=== PATIENT | female | born 1990 | race Caucasian/White ===

== ENCOUNTER 2018-03-02 13:54 | Emergency (ER) | payer BC, OTHER ==
[~2018-03-02] VITALS: Ht 167.6 cm; Wt 98.9 kg
[~2018-03-02 13:54] MED LIST: HYDR-757 PO; IBUP200C PO
--- OUTSIDE RECORDS SUMMARY | 2018-03-02 14:05 | XMS REPORT ---
Author Author EMERALDVLADIMIR Organization [facility] Address [address] [place] [address] Care Team Providers Care Accounts Collector Name Role Phone VLADIMIR CORBIN Unavailable PROBLEMS Type Condition ICD9-CM Code CZS55-JS Code Onset Dates Condition Status SNOMED Code Problem Non-seasonal allergic rhinitis due to pollen J30.1 Active 30017748 Problem Acquired hypothyroidism E03.9 Active 753851997 Problem Mixed hyperlipidemia E78.2 Active 953149308 Problem Obesity (BMI 30-39.9) E66.9 Active 584190998 Problem Mild single current episode of major depressive disorder F32.0 Active 77314625 ALLERGIES No Known Allergies ENCOUNTERS Encounter Location Date Diagnosis [place] [id number] [address] Nov, Non-seasonal allergic rhinitis due to pollen J30.1 [place] [address] [place] [id number] [place] [phone] May, Encounter to establish care with new doctor Z76.Vince ; Acquired hypothyroidism E03.9 ; Mild single current episode of major depressive disorder F32.0 and Obesity (BMI 30-39.9) E66.9 [place] [address] [place] [id number] [place] [phone] May, Encounter to establish care with new doctor Z76.89 ; Acquired hypothyroidism E03.9 ; Mild single current episode of major depressive disorder F32.0 ; Obesity (BMI 30-39.9) E66.9 and Encounter for immunization Z23 [place] [address] [place] [id number] [place] [address] May, [place] [address] [place] [id number] [place] [phone] 21 Aug, 2017 Acute bronchitis, unspecified organism J20.9 ; Sore throat J02.9 and Elevated blood pressure reading R03.0 [facility] [address] [address] Feb, Irritable bowel syndrome with diarrhea K58.0 and Anhedonia R45.84 [facility] [address] [address] Feb, Major depressive disorder, single episode, moderate F32.1 [facility] [address] [phone] 13 Oct, 2015 Acute vomiting R11.10 and Acute diarrhea R19.7 [facility] [address] [address] Jul, Muscle spasm of back M62.830 [facility] [address] [address] Dec, [facility] [address] [address] Dec, [facility] [address] [address] Oct, [facility] [address] [place] [id number] [place] [address] Oct, [facility] [address] [place] [id number] [place] [phone] Jun, [facility] [address] [place] [address] [id number] [place] [phone] Jun, [facility] [address] [address] Jun, [facility] [address] [address] Jun, [facility] [address] [place] [id number] [place] [phone] Nov, [facility] [address] [facility] [id number] [address] Nov, [facility] [address] [facility] [id number] [address] Nov, [facility] [address] [facility] [id number] [address] Nov, [facility] [address] [facility] [id number], [place] [address] Sep, [facility] [address] [facility] [id number], [place] [address] Sep, IMMUNIZATIONS No Known Immunizations SOCIAL HISTORY Never Assessed REASON FOR VISIT Sore throat, cough, congestion, SOB since Sunday, sent home from work today--- DBennettRN, nausea, will cough so hard she vomits, Max temp 101 on Sunday PLAN OF CARE Activity Details Follow Up 4 Weeks Reason:needs to est. care VITAL SIGNS Height 66 in 2017-04-23 Weight 215 lbs 2017-04-23 Temperature 98.8 degrees Fahrenheit 2017-04-23 Heart Rate 120 bpm 2017-04-23 Respiratory Rate 20 2017-04-23 BMI 34.70 kg/m2 2017-04-23 Blood pressure systolic 168 mmHg 2017-04-23 Blood pressure diastolic 96 mmHg 2017-04-23 MEDICATIONS Medication Instructions Dosage Frequency Start Date End Date Duration Status ProAir HFA 108 (90 Base) MCG/ACT Inhalation every 4 hrs 2 puffs as needed 4h Apr, 10 days Active PredniSONE 20 mg Orally Once a day 1 tablet 24h Apr, Apr, 05 days Active Azithromycin 250 MG Orally Once a day 2 tablets on the first day, then 1 tablet daily for 4 days 24h Apr, Apr, 5 day(s) Active Acidophilus Active RESULTS No Results PROCEDURES Procedure Date Ordered Result Body Site STREP A ASSAY W/OPTIC Apr 23, 2017 INSTRUCTIONS MEDICATIONS ADMINISTERED No Known Medications MEDICAL (GENERAL) HISTORY Type Description Date Medical History hypothyroidism; has not been on meds since age 15 Medical History hypertension Medical History hyperglycemia Surgical History cracked tail bone 2006 Surgical History wisdom teeth extraction 2014
[2018-03-02] MEDS ORDERED: FLUT16SP22 (14:21)
[2018-03-02 14:42] LABS: BASOPHILS % (AUTO) 1 % (0-10); EOSINOPHILS # (AUTO) 0.1 10^3/uL (0.0-0.3); EOSINOPHILS % (AUTO) 1 % (0-10); HEMATOCRIT 42 % (35-52); HEMOGLOBIN 14.9 G/DL (11.5-16.0); LYMPHOCYTES # (AUTO) 1.7 X 10^3 (1.0-4.0); LYMPHOCYTES % (AUTO) 21 % (12-44); MEAN CORPUSCULAR HEMOGLOBIN 31 PG (25-34); MEAN CORPUSCULAR HGB CONC 36 G/DL (32-36); MEAN CORPUSCULAR VOLUME 87 FL (80-99); MEAN PLATELET VOLUME 11.3 FL (7.4-10.4); MONOCYTES # (AUTO) 0.8 X 10^3 (0.0-1.0); MONOCYTES % (AUTO) 10 % (0-12); NEUTROPHILS # (AUTO) 5.5 X 10^3 (1.8-7.8); NEUTROPHILS % (AUTO) 67 % (42-75); PLATELET COUNT 216 10^3/uL (130-400); RED BLOOD COUNT 4.81 10^6/uL (4.35-5.85); RED CELL DISTRIBUTION WIDTH 12.6 % (10.0-14.5); WHITE BLOOD COUNT 8.1 10^3/uL (4.3-11.0)
--- NOTE | 2018-03-02 14:46 | ED Abdominal Pain ---
General Chief Complaint: Abdominal/GI Problems Stated Complaint: SHARP PAIN RIGHT SIDE ABDOMEN Nursing Triage Note: ARRIVED VIA AMB TO ROOM 06 WITH COMPLAINTS OF RIGHT LOWER ABD PAIN STARTING YESTERDAY. HAS ALSO HAD CRAMPS SINCE THE . Sepsis Screen: No Definite Risk Source of Information: Patient Exam Limitations: No Limitations History of Present Illness Date Seen by Provider: Mar 02, 2018 Time Seen by Provider: 14:44 Initial Comments to ER with sharp right lower quadrant abdominal pain since the of this month. She initially thought this with the onset of an early menstrual period. She should have started her menstrual cycle but has not yet started it. She did follow with [facility] and had a negative test done. She 's had some brownish colored vaginal discharge since the of this month. She is sexually active. She has nausea but no vomiting. No bowel changes. No fevers or chills. Timing/Duration: 1-2 Days Severity/Quality: Moderate Location: RLQ Radiation: No Radiation Activities at Onset: None Allergies and Home Medications Allergies Coded Allergies: No Known Drug Allergies (Unverified , 09/25/10) Home Medications Metronidazole 500 Mg Tablet, 500 MG PO BID Prescribed by: ERNESTO PIRES on 03/02/18 7286 Patient Home Medication List Home Medication List Reviewed: Yes Review of Systems Constitutional: see HPI EENTM: No Symptoms Reported Respiratory: No Symptoms Reported Cardiovascular: No Symptoms Reported Gastrointestinal: See HPI, Abdominal Pain, Nausea; Denies Vomiting Genitourinary: No Symptoms Reported Musculoskeletal: no symptoms reported Skin: no symptoms reported Psychiatric/Neurological: No Symptoms Reported Endocrine: No Symptoms Reported Past Uhgkmyi-Afqnmw-Bmpxpo Hx Patient Social History Alcohol Use: Occasionally Uses Recreational Drug Use: No Smoking Status: Never a Smoker Recent Foreign Travel: No Contact w/Someone Who Travel: No Recent Infectious Disease Expo: No Past Medical History Surgeries: Yes (TAILBONE SURGERY A LONG TIME AGO) Respiratory: No Cardiac: No Neurological: No Reproductive Disorders: No Genitourinary: No Gastrointestinal: No Musculoskeletal: No Endocrine: No HEENT: No Cancer: No Psychosocial: No Integumentary: No Blood Disorders: No Physical Exam Vital Signs Vital Signs - First Documented 03/02/18 14:06 Temp 98.0 Capillary Refill : Less Than 3 Seconds General Appearance: WD/WN, no apparent distress HEENT: PERRL/EOMI, normal ENT inspection Neck: non-tender, full range of motion Respiratory: no respiratory distress, no accessory muscle use Cardiovascular: regular rate, rhythm, no murmur Gastrointestinal: normal bowel sounds, soft, tenderness Pelvic: normal external exam, discharge (small amount of whitish discharge. No brownish discharge noted.); No lesions, No mass; tender w/ cervical motion, other Neurologic/Psychiatric: alert, normal mood/affect, oriented x 3 Skin: normal color, warm/dry Progress/Results/Core Measures Results/Orders Lab Results Laboratory Tests Test 03/02/18 14:30 Range/Units White Blood Count 8.1 4.3-11.0 10^3/uL Red Blood Count 4.81 4.35-5.85 10^6/uL Hemoglobin 14.9 11.5-16.0 G/DL Hematocrit 42 35-52 % Mean Corpuscular Volume 87 80-99 FL Mean Corpuscular Hemoglobin 31 25-34 PG Mean Corpuscular Hemoglobin Concent 36 32-36 G/DL Red Cell Distribution Width 12.6 10.0-14.5 % Platelet Count 216 130-400 10^3/uL Mean Platelet Volume 11.3 H 7.4-10.4 FL Neutrophils (%) (Auto) 67 42-75 % Lymphocytes (%) (Auto) 21 12-44 % Monocytes (%) (Auto) 10 0-12 % Eosinophils (%) (Auto) 1 0-10 % Basophils (%) (Auto) 1 0-10 % Neutrophils # (Auto) 5.5 1.8-7.8 X 10^3 Lymphocytes # (Auto) 1.7 1.0-4.0 X 10^3 Monocytes # (Auto) 0.8 0.0-1.0 X 10^3 Eosinophils # (Auto) 0.1 0.0-0.3 10^3/uL Basophils # (Auto) 0.0 0.0-0.1 10^3/uL Sodium Level 139 135-145 MMOL/L Potassium Level 3.6 3.6-5.0 MMOL/L Chloride Level 108 H 98-107 MMOL/L Carbon Dioxide Level 20 L 21-32 MMOL/L Anion Gap 11 5-14 MMOL/L Blood Urea Nitrogen 10 7-18 MG/DL Creatinine 0.71 0.60-1.30 MG/DL Estimat Glomerular Filtration Rate > 60 BUN/Creatinine Ratio 14 Glucose Level 95 70-105 MG/DL Calcium Level 9.4 8.5-10.1 MG/DL Total Bilirubin 0.4 0.1-1.0 MG/DL Aspartate Amino Transf (AST/SGOT) 13 5-34 U/L Alanine Aminotransferase (ALT/SGPT) 13 0-55 U/L Alkaline Phosphatase 87 40-136 U/L Total Protein 7.3 6.4-8.2 GM/DL Albumin 4.4 3.2-4.5 GM/DL Serum Test, Qualitative NEGATIVE NEGATIVE Micro Results Microbiology 03/02/18 Genital Culture, Resulted Pending 03/02/18 BRAYAN Preparation - Final, Resulted 03/02/18 Wet Prep - Final, Resulted My Orders Orders - ERNESTO PIRES APRN Cbc With Automated Diff (03/02/18 14:19) Comprehensive Metabolic Panel (03/02/18 14:19) Hcg,Qualitative Serum (03/02/18 14:19) Iv Heplock-Insert (Order) (03/02/18 14:19) Wet Prep (03/02/18 14:19) Neisseria Gonorrhea Swab (03/02/18 14:19) Genital Culture (03/02/18 14:19) Brayan Prep (03/02/18 14:19) Chlamydia Trachomatis Swab (03/02/18 14:19) Us Non Ob Pelvis Comp/Transvag (03/02/18 14:19) Ct Abd/Pelv W (Appendicitis) (03/02/18 15:11) Iohexol Injection (Omnipaque 350 Mg/Ml 1 (03/02/18 15:15) Ns (Ivpb) (Sodium Chloride 0.9% Ivpb Bag (03/02/18 15:15) Ceftriaxone Injection (Rocephin Injectio (03/02/18 16:00) Azithromycin Tablet (Zithromax Tablet) (03/02/18 16:00) Medications Given in ED Current Medications Medications Dose Ordered Sig/Sarah Route Start Time Stop Time Status Last Admin Dose Admin Iohexol 100 ml ONCE ONCE IV 03/02/18 15:15 03/02/18 15:16 UNV 03/02/18 15:24 100 ML Sodium Chloride 100 ml ONCE ONCE IV 03/02/18 15:15 03/02/18 15:16 UNV 03/02/18 15:24 100 ML Vital Signs/I&O 03/02/18 14:06 Temp 98.0 B/P (MAP) Diagnostic Imaging Diagonstic Imaging: CT Comments NAME: [facility] REC#: [id number] PT STATUS: REG ER : 1990 PHYSICIAN: ERNESTO PIRES APRN ADMIT DATE: 03/02/18/ER Draft Date of Exam:03/02/18 CT ABD/PELV W (APPENDICITIS) PROCEDURE: CT abdomen and pelvis with contrast, rule out appendicitis. TECHNIQUE: Multiple contiguous axial images were obtained through the abdomen and pelvis after the administration of intravenous contrast. INDICATION: Right lower quadrant abdominal pain. COMPARISON: None. FINDINGS: The lung bases are clear. The liver, gallbladder, spleen, pancreas, adrenal glands, kidneys and vascular structures are grossly unremarkable. The appendix is normal. Distal ureters and urinary bladder are normal. The uterus is intact. There is no free air or free fluid. There is a single prominent gas-filled loop of small bowel, centrally, within the abdomen which could represent an early ileus. There is no overt obstruction. There is no significant constipation. There is no lymphadenopathy or inflammatory process. Osseous structures are normal. IMPRESSION: 1. Prominent nonspecific gas-filled loop of small bowel in the central abdomen, possibly an early ileus. There is no obstruction or inflammatory process. 2. Normal appendix. Dictated on workstation # [id number] Dict: 03/02/18 1543 Trans: 03/02/18 1548 [facility] [id number] Interpreted by: INESSA JOSHI Electronically signed by: Departure Impression Primary Impression: Bacterial vaginosis Additional Impressions: RLQ abdominal pain Cervicitis Disposition: HOME, SELF-CARE Condition: Stable Departure-Patient Inst. Decision time for Depature: 15:53 Referrals: [facility] (PCP/Family) Primary Care Physician Patient Instructions: Bacterial Vaginosis Add. Discharge Instructions: 1. Return to ER for any concerns 2. Follow-up with your doctor next week 3. Medication as directed All discharge instructions reviewed with patient and/or family. Voiced understanding. Scripts Metronidazole (Flagyl) 500 Mg Tablet 500 MG PO BID, #14 TAB Prov: ERNESTO PIRES APRN 03/02/18 ERNESTO PIRES APRN Mar 02, 2018 14:46
[2018-03-02 15:00] LABS: ALANINE AMINOTRANSFERASE 13 U/L (0-55); ALBUMIN 4.4 GM/DL (3.2-4.5); ALKALINE PHOSPHATASE 87 U/L (40-136); BILIRUBIN,TOTAL 0.4 MG/DL (0.1-1.0); BUN/CREATININE RATIO 14; CALCIUM 9.4 MG/DL (8.5-10.1); CARBON DIOXIDE 20 MMOL/L (21-32); CHLORIDE 108 MMOL/L (98-107); CREATININE SERUM 0.71 MG/DL (0.60-1.30); GFR ESTIMATED > 60; GLUCOSE 95 MG/DL (70-105); POTASSIUM 3.6 MMOL/L (3.6-5.0); SODIUM 139 MMOL/L (135-145); TOTAL PROTEIN 7.3 GM/DL (6.4-8.2)
[2018-03-02] MEDS ORDERED: NS 100 ML (IVPB) BAG IV ONE (15:15)
[2018-03-02] MEDS ORDERED: IOHEXOL 350 MG/ML 100 ML (OMNIPAQUE 350) VIAL IV ONE (15:15)
--- NOTE | 2018-03-02 15:49 | Diagnostic Imaging Report ---
PROCEDURE: CT abdomen and pelvis with contrast, rule out appendicitis. TECHNIQUE: Multiple contiguous axial images were obtained through the abdomen and pelvis after the administration of intravenous contrast. INDICATION: Right lower quadrant abdominal pain. COMPARISON: None. FINDINGS: The lung bases are clear. The liver, gallbladder, spleen, pancreas, adrenal glands, kidneys and vascular structures are grossly unremarkable. The appendix is normal. Distal ureters and urinary bladder are normal. The uterus is intact. There is no free air or free fluid. There is a single prominent gas-filled loop of small bowel, centrally, within the abdomen which could represent an early ileus. There is no overt obstruction. There is no significant constipation. There is no lymphadenopathy or inflammatory process. Osseous structures are normal. IMPRESSION: 1. Prominent nonspecific gas-filled loop of small bowel in the central abdomen, possibly an early ileus. There is no obstruction or inflammatory process. 2. Normal appendix. Dictated by: Dictated on workstation # [id number]
--- NOTE | 2018-03-02 15:52 | Diagnostic Imaging Report ---
INDICATION: Lower pelvic pain. COMPARISON: None. EXAMINATION: Pelvic ultrasound. FINDINGS: The uterus measures 7 x 5 x 4 cm and has a normal appearance. The endometrium is normal at 6 mm. The right ovary measures 2.5 x 4.0 x 2.5 cm. The left ovary is not identified. There is no mass or free fluid. IMPRESSION: Left ovary is not identified by ultrasound; otherwise, negative pelvic sonogram. Dictated by: Dictated on workstation # [id number]
[2018-03-02] MEDS ORDERED: METR500T PO (15:54)
[2018-03-02] MEDS ORDERED: cefTRIAXone INJECTION 1,000 MG in NS (IVPB) 50 ML IV ONE (16:00)
[2018-03-02] MEDS ORDERED: AZITHROMYCIN 250 MG TAB (ZITHROMAX) PO SCH (16:00)
[2018-03-02 16:42] VITALS: BP 133/78
== END 2018-03-02 16:42 | disposition home or self-care (01) ==
LOC: EDUNIT# 13:54 → ER 14:00
DX: N76.0 Acute vaginitis (principal); N72 Inflammatory disease of cervix uteri; Z32.02 Encounter for pregnancy test, result negative
CPT/HCPCS: 36415; 74177; 76830; 76856; 80053; 84703; 85025; 87070; 87210; 87491; 87591; 96365

== ENCOUNTER 2019-09-09 17:15 | Emergency (ER) | payer BC ==
[~2019-09-09] VITALS: Ht 167 cm; Wt 107.7 kg
[~2019-09-09 17:15] MED LIST changes: +FLUT16SP22; +METR500T PO
--- NOTE | 2019-09-09 18:23 | ED Cough/URI ---
General Chief Complaint: Cough/Cold/Flu Symptoms Stated Complaint: COUGH,CONGESTION Nursing Triage Note: ARRIVED VIA AMB TO TRIAGE WITH COUGH AND CONGESTION X1 WEEK. STATES SHE WENT TO [facility] AND THEY DID NOT GIVE HER ANY MEDS A COUPLE OF DAYS AGO AND SHE IS NOT BETTER. Sepsis Screen: No Definite Risk History of Present Illness Date Seen by Provider: Sep 09, 2019 Time Seen by Provider: 17:45 Initial Comments 29-year-old female reports cough for the last week. She has been taking Mucinex with no improvement in her symptoms. She denies getting a flu vaccine pressure. No fevers. Timing/Duration: intermittent Severity/Quality: dry cough Prior Episodes/Possible Cause: no prior episodes Associated Symptoms: cough, nasal congestion Allergies and Home Medications Allergies Coded Allergies: No Known Drug Allergies (Unverified , 09/25/10) Home Medications Albuterol Sulfate 6.7 Gm Hfa.aer.ad, 2 PUFF INH Q6H Prescribed by: TIANNA PIPER on 09/09/191835 Prednisone 20 Mg Tab, 40 MG PO DAILY Prescribed by: TIANNA PIPER on 09/09/191835 Patient Home Medication List Home Medication List Reviewed: Yes Review of Systems Review of Systems Constitutional: see HPI, malaise Respiratory: see HPI, cough; No short of breath All Other Systems Reviewed Negative Unless Noted: Yes Past Vgoksud-Kgpmei-Adurrm Hx Past Med/Social Hx: Reviewed Nursing Past Med/Soc Hx Patient Social History Recent Foreign Travel: No Contact w/Someone Who Travel: No Recent Infectious Disease Expo: No Past Medical History Surgeries: Yes (TAILBONE SURGERY A LONG TIME AGO) Respiratory: No Cardiac: No Neurological: No : No Last Menstrual Period: Sep 09, 2019 Reproductive Disorders: No Genitourinary: No Gastrointestinal: No Musculoskeletal: No Endocrine: No HEENT: No Cancer: No Psychosocial: No Integumentary: No Blood Disorders: No Physical Exam Vital Signs - First Documented 09/09/19 17:26 Temp 36.9 Pulse 118 Resp 18 B/P (MAP) 133/72 (92) Pulse Ox 98 O2 Delivery Room Air Capillary Refill : Less Than 3 Seconds Height: 5'6.00" Weight: 218lbs. oz. 98.507815sr; 38.00 BMI Method:Stated General Appearance: WD/WN, no apparent distress HEENT: PERRL/EOMI, normal ENT inspection, TMs normal, pharynx normal Neck: non-tender, full range of motion, supple, normal inspection Respiratory: chest non-tender, lungs clear, normal breath sounds Cardiovascular: normal peripheral pulses, regular rate, rhythm Gastrointestinal: normal bowel sounds, non tender, soft Neurologic/Psychiatric: no motor/sensory deficits, alert, normal mood/affect, oriented x 3 Skin: normal color, warm/dry Progress/Results/Core Measures Suspected Sepsis Recent Fever Within 48 Hours: No Infection Criteria Present: Suspected New Infection New/Unexplained Altered Menta: No Sepsis Screen: No Definite Risk SIRS Temperature: Pulse: 118 Respiratory Rate: 18 Blood Pressure 133 /72 Mean: 92 Results/Orders Micro Results Microbiology 09/09/19 Influenza Types A,B Antigen (MYA) - Final, Complete My Orders Orders - TIANNA PIPER Influenza A And B Antigens (09/09/19 17:45) Vital Signs/I&O 09/09/19 09/09/19 17:26 18:53 Temp 36.9 36.9 Pulse 118 118 Resp 18 18 B/P (MAP) 133/72 (92) 133/72 (92) Pulse Ox 98 98 O2 Delivery Room Air Capillary Refill : Less Than 3 Seconds Blood Pressure Mean: 92 Progress Note : Time: 17:45 Progress Note Patient seen and evaluated, will obtain influenza swab and reevaluate. Pulse is 80 at this time. Departure Impression Primary Impression: Upper respiratory infection Qualified Codes: J06.9 - Acute upper respiratory infection, unspecified Disposition: 01 HOME, SELF-CARE Condition: Improved Departure-Patient Inst. Decision time for Depature: 18:45 Referrals: [facility] [place] Primary Care Physician Patient Instructions: Cough, Adult (DC), Viral Upper Respiratory Infection, Adult (DC) Add. Discharge Instructions: Continue taking Mucinex one tablet every 12 hours with a full glass of water. Use the inhaler every 4-6 hours, 2 puffs waiting 5-10 minutes between puffs. Sinus irrigation with a Michela pot or Eddie med bottle, every 4 hours, while awake. Follow-up with your primary care provider if symptoms are not improving or worsen. Alternate between Tylenol 650 mg and Tylenol 600 mg every 4 hours for fever or discomfort. Increase rest. Return to the emergency department for new, urgent health care needs. All discharge instructions reviewed with patient and/or family. Voiced understanding. Scripts Albuterol Sulfate (Proventil Hfa) 6.7 Gm Hfa.aer.ad 2 PUFF INH Q6H for SHORTNESS OF BREATH for 10 Days, #1 EACH 0 Refills Prov: TIANNA PIPER 09/09/19 Prednisone (Prednisone) 20 Mg Tab 40 MG PO DAILY, #8 TAB 0 Refills Prov: TIANNA PIPER 09/09/19 Work/School Note: Work Release Form Date Seen in the Emergency Department: Sep 09, 2019 Return to Work: Sep 10, 2019 Restrictions: No Restrictions TIANNA PIPER Sep 09, 2019 18:23
[2019-09-09] MEDS ORDERED: RT-ALBUINH INH (18:36)
[2019-09-09] MEDS ORDERED: PRD20T PO (18:36)
[2019-09-09 18:53] VITALS: BP 133/72
== END 2019-09-09 18:53 | disposition home or self-care (01) ==
LOC: EDUNIT# 17:15 → ER 17:16
DX: J06.9 Acute upper respiratory infection, unspecified (principal); Z79.52 Long term (current) use of systemic steroids
CPT/HCPCS: 87804

== ENCOUNTER 2020-10-21 20:21 | Emergency (ER) | payer SELFPAY ==
[~2020-10-21] VITALS: Ht 170.1 cm; Wt 108.8 kg
[~2020-10-21 20:21] MED LIST changes: +PRD20T PO; +RT-ALBUINH INH
[2020-10-21] MEDS ORDERED: LACTATED RINGERS 1,000 ML IV ONE (20:45)
[2020-10-21] MEDS ORDERED: FLUT9.9S NS (20:49)
--- NOTE | 2020-10-21 20:51 | ED Abdominal Pain ---
General Chief Complaint: Abdominal/GI Problems Stated Complaint: LOWER BACK / ABDOMINAL PAIN Nursing Triage Note: PATIENT STATES THAT SHE HAS HAD LEFT SIDE PAIN FOR THE PAST TWO MONTHS AND WORSENING TODAY. CURRENTLY RATING 7/10. STATES THAT HER URINE IS DARK. SHE WENT TO [facility] TODAY FOR THIS COMPLAINT. SHE STATES THAT SHE IS FRUSTRATED THAT THEY WERE ABLE TO GIVE HER A DEFINITE DIAGNOSIS. SHE STATES THAT SHE WAS TOLD THAT IT COULD BE POLYCYSTIC OVARIAN SYNDROME. Sepsis Screen: No Definite Risk Source of Information: Patient History of Present Illness Date Seen by Provider: Oct 21, 2020 Time Seen by Provider: 20:39 Initial Comments PT ARRIVES VIA POV FROM HOME C/O LEFT FLANK PAIN FOR 2 MONTHS, WORSE TODAY. SEEN AT [facility] TODAY, NO TESTS DONE AND NO DX, NO RX NO RADIATION OF PAIN STATES HER URINE IS DARK AND OCCASIONALLY IT "STINGS" WHEN SHE URINATES HAD FEVER OF 101 A COUPLE OF WEEKS AGO\\ AT THAT TIME SHE DID HAVE NAUSEA AND VOMITED X 1 WHEN SHE HAD FEVER, NONE SINCE HAS HAD DIARRHEA OFF AND ON--LAST TIME WAS 2 DAYS AGO HAS NOT TAKEN ANYTHING FOR PAIN LMP--2 MONTHS AGO. STATES SHE HAS HAD OVARIAN CYSTS AND POSSIBLE PCOS. TAKES SPIRONOLACTONE FOR ELEVATED TESTOSTERONE LEVELS. NO COUGH NO CHEST PAIN NO SHORTNESS OF BREATH NO SORE THROAT OR LOSS OF TASTE OR SMELL HAS BEEN EXPOSED TO COVID AT WORK ( WORKS AT [employer]) --HAD A NEGATIVE TEST 1 MONTH AGO. [facility] Allergies and Home Medications Allergies Coded Allergies: No Known Drug Allergies (Unverified , 09/25/10) Home Medications Albuterol Sulfate 6.7 Gm Hfa.aer.ad, 2 PUFF INH Q6H Prescribed by: TIANNA PIPER on 09/09/19 183 Cyclobenzaprine HCl 10 Mg Tablet, 10 MG PO Q8H PRN for SPASMS Prescribed by: BRY HUTTON on 10/21/202226 Fluticasone Propionate 9.9 Ml [place].susp, 1 SPRAY NS DAILY, (Reported) 1 SPRAY EACH NARE DAILY Meloxicam 15 Mg Tablet, 15 MG PO DAILY Prescribed by: BRY HUTTON on 10/21/202226 Nitrofurantoin Monohyd/M-Cryst 100 Mg Capsule, 1 TAB PO BID Prescribed by: BRY HUTTON on 10/21/202226 Ondansetron 4 Mg Tab.rapdis, 4 MG PO Q4H Prescribed by: BRY HUTTON on 10/21/202226 Patient Home Medication List Home Medication List Reviewed: Yes Review of Systems Review of Systems Constitutional: see HPI (NO FEVER FOR 2 WEEKS) EENTM: No Symptoms Reported Respiratory: No Symptoms Reported Cardiovascular: No Symptoms Reported Gastrointestinal: See HPI Genitourinary: See HPI, Burning, Flank Pain Musculoskeletal: see HPI, back pain Skin: no symptoms reported Psychiatric/Neurological: No Symptoms Reported Endocrine: See HPI Hematologic/Lymphatic: No Symptoms Reported Past Irregvp-Yeagig-Szlhjb Hx Past Med/Social Hx: Reviewed and Corrections made Patient Social History Alcohol Use: Occasionally Uses Drug of Choice: DENIES Smoking Status: Never a Smoker 2nd Hand Smoke Exposure: Yes Recent Infectious Disease Expo: No Past Medical History Surgeries: Yes (TAILBONE SURGERY A LONG TIME AGO/?PILONIDAL CYST: OVARIAN CYST REMOVAL) Respiratory: No Cardiac: No Neurological: No 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 Reproductive Disorders: Menstrual Problems, Ovarian Cyst Genitourinary: No Gastrointestinal: Yes (GALLSTONES NOTED ON CT SCAN 10/21/20) Gall Bladder Disease Musculoskeletal: No Endocrine: No HEENT: No Cancer: No Psychosocial: No Integumentary: No Blood Disorders: No Physical Exam Vital Signs Vital Signs - First Documented 10/21/20 20:30 Temp 36.5 Pulse 104 Resp 22 B/P (MAP) 168/98 (121) Pulse Ox 98 O2 Delivery Room Air Capillary Refill : Less Than 3 Seconds Height/Weight/BMI Height: 5'6.00" Weight: 218lbs. oz. [id number]; 37.00 BMI Method:Stated General Appearance: WD/WN, no apparent distress, obese Neck: normal inspection Respiratory: normal breath sounds, no respiratory distress, no accessory muscle use Cardiovascular: regular rate, rhythm, no murmur Gastrointestinal: normal bowel sounds, soft, no organomegaly, no pulsatile mass; No distended, No guarding, No rebound; tenderness (MILD TENDERNESS TO LEFT FLANK AND TO SUPRAPUBIC AREA. 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, no motor/sensory deficits, alert, normal mood/affect, oriented x 3 Skin: normal color, warm/dry; No rash Progress/Results/Core Measures Results/Orders Lab Results Laboratory Tests Test 10/21/20 21:00 10/21/20 21:54 Range/Units Urine Color YELLOW Urine Clarity CLEAR Urine pH 6.5 5-9 Urine Specific [place] 1.020 1.016-1.022 Urine Protein NEGATIVE NEGATIVE Urine Glucose (UA) NEGATIVE NEGATIVE Urine Ketones NEGATIVE NEGATIVE Urine Nitrite NEGATIVE NEGATIVE Urine Bilirubin NEGATIVE NEGATIVE Urine Urobilinogen 1.0 < = 1.0 MG/DL Urine Leukocyte Esterase NEGATIVE NEGATIVE Urine RBC (Auto) NEGATIVE NEGATIVE Urine RBC NONE /HPF Urine WBC RARE /HPF Urine Squamous Epithelial Cells 5-10 /HPF Urine Crystals NONE /LPF Urine Bacteria MODERATE H /HPF Urine Casts NONE /LPF Urine Mucus SMALL H /LPF Urine Culture Indicated YES White Blood Count 10.1 4.3-11.0 10^3/uL Red Blood Count 5.25 H 3.80-5.11 10^6/uL Hemoglobin 15.8 11.5-16.0 g/dL Hematocrit 48 35-52 % Mean Corpuscular Volume 91 80-99 fL Mean Corpuscular Hemoglobin 30 25-34 pg Mean Corpuscular Hemoglobin Concent 33 32-36 g/dL Red Cell Distribution Width 12.1 10.0-14.5 % Platelet Count 234 130-400 10^3/uL Mean Platelet Volume 11.4 9.0-12.2 fL Immature Granulocyte % (Auto) 0 % Neutrophils (%) (Auto) 72 42-75 % Lymphocytes (%) (Auto) 20 12-44 % Monocytes (%) (Auto) 7 0-12 % Eosinophils (%) (Auto) 0 0-10 % Basophils (%) (Auto) 1 0-10 % Neutrophils # (Auto) 7.3 1.8-7.8 10^3/uL Lymphocytes # (Auto) 2.0 1.0-4.0 10^3/uL Monocytes # (Auto) 0.7 0.0-1.0 10^3/uL Eosinophils # (Auto) 0.0 0.0-0.3 10^3/uL Basophils # (Auto) 0.1 0.0-0.1 10^3/uL Immature Granulocyte # (Auto) 0.0 0.0-0.1 10^3/uL Sodium Level 140 135-145 MMOL/L Potassium Level 3.9 3.6-5.0 MMOL/L Chloride Level 105 98-107 MMOL/L Carbon Dioxide Level 19 L 21-32 MMOL/L Anion Gap 16 H 5-14 MMOL/L Blood Urea Nitrogen 12 7-18 MG/DL Creatinine 0.81 0.60-1.30 MG/DL Estimat Glomerular Filtration Rate > 60 BUN/Creatinine Ratio 15 Glucose Level 83 70-105 MG/DL Calcium Level 10.0 8.5-10.1 MG/DL Corrected Calcium 8.5-10.1 MG/DL Total Bilirubin 0.2 0.1-1.0 MG/DL Aspartate Amino Transf (AST/SGOT) 21 5-34 U/L Alanine Aminotransferase (ALT/SGPT) 36 0-55 U/L Alkaline Phosphatase 102 40-136 U/L Total Protein 8.7 H 6.4-8.2 GM/DL Albumin 5.0 H 3.2-4.5 GM/DL Amylase Level 65 25-125 U/L Lipase 29 8-78 U/L My Orders Orders - BRY HUTTON DO Ed Iv/Invasive Line Start (10/21/20 20:45) Urine Bedside (10/21/20 20:45) Monitor-Rhythm Ecg Trace Only (10/21/20 20:45) Ct Abd/Pelvis Wo(Kidney Stone) (10/21/20 20:45) Acute Abd Series (10/21/20 20:45) Amylase (10/21/20 20:45) Cbc With Automated Diff (10/21/20 20:45) Comprehensive Metabolic Panel (10/21/20 20:45) Lipase (10/21/20 20:45) Ua Culture If Indicated (10/21/20 20:45) Ed Iv/Invasive Line Start (10/21/20 20:45) Lactated Ringers (Lr 1000 Ml Iv Solution (10/21/20 20:45) Urine Culture (10/21/20 21:00) Ketorolac Injection (Toradol Injection) (10/21/20 22:30) Ceftriaxone For Iv Use (Rocephin For I (10/21/20 22:30) Medications Given in ED Current Medications Medications Dose Ordered Sig/Sarah Route Start Time Stop Time Status Last Admin Dose Admin Ceftriaxone Sodium 1000 mg/ Sterile Water 10 ml @ 200 mls/hr ONCE ONCE IV 10/21/20 22:30 10/21/20 22:32 DC 10/21/20 22:27 200 MLS/HR Ketorolac Tromethamine 30 mg ONCE ONCE IVP 10/21/20 22:30 10/21/20 22:31 DC 10/21/20 22:27 30 MG Lactated Ringer's 1,000 ml @ 0 mls/hr Q0M ONCE IV 10/21/20 20:45 10/21/20 20:47 DC 10/21/20 21:08 1,000 MLS/HR Vital Signs/I&O 10/21/20 20:30 Temp 36.5 Pulse 104 Resp 22 B/P (MAP) 168/98 (121) Pulse Ox 98 O2 Delivery Room Air 10/22/20 00:00 Intake Total 1010 ml Balance 1010 ml Blood Pressure Mean: 121 Progress Progress Note : Progress Note GIVEN IV FLUIDS, TORADOL AND ROCEPHIN SYMPTOMS IMPROVED AT DISMISSAL UNEVENTFUL ER STAY Diagnostic Imaging Comments ABDOMEN XRAYS--PER RADIOLOGIST REPORT AT 2206 ABDOMEN AND PELVIS: Unremarkable x-ray of the abdomen with nonobstructed bowel gas pattern. There is no evidence of abdominal free air. There are multiple shadows of stones overlying the right upper quadrant which correlates to cholelithiasis. This is better seen on comparison CT scan. There are no focal calcifications overlying the expected regions/ pathways of both kidneys, ureters, and bladder regions. IMPRESSION: 1: There is no radiographic evidence of acute cardiopulmonary process. 2: Cholelithiasis which is better seen on comparison CT scan. Otherwise, unremarkable x-ray of the abdomen. CT ABDOMEN/PELVIS--PER RADIOLOGIST REPORT 2220 Impression: 1: There is no CT evidence of acute abdominal pelvic process. There are no renal stones seen or hydronephrosis. 2: Interval development of cholelithiasis with multiple stones within the decompressed gallbladder. There is no CT evidence of acute cholecystitis. 3: The remainder of this exam shows no significant abnormality. Reviewed: Reviewed by Me Departure Impression Primary Impression: Left flank pain Additional Impressions: Cholelithiasis Urinary tract infection Disposition: 01 HOME, SELF-CARE Condition: Improved Departure-Patient Inst. Referrals: [facility] (PCP/Family) Primary Care Physician SELVIN LIU MD Patient Instructions: Flank Pain (DC), Gallstones (DC), Urinary Tract Infection, Adult (DC) Add. Discharge Instructions: LOTS OF CLEAR LIQUIDS--WATER, BROTH, JELLO, GATORADE. NO COFFEE, POP OR TEA FOODS TOLERATED FOLLOW UP WITH DR. LIU FOR FURTHER EVALUATION OF GALLSTONES FOLLOW UP WITH [facility] [place] 1 W[place] TO RECHECK URINE All discharge instructions reviewed with patient and/or family. Voiced understanding. Scripts Ondansetron (Ondansetron Odt) 4 Mg Tab.rapdis 4 MG PO Q4H for Nausea/Vomiting, #10 TAB Prov: BRY HUTTON DO 10/21/20 Nitrofurantoin Monohyd/M-Cryst (Macrobid 100 mg Capsule) 100 Mg Capsule 1 TAB PO BID, #20 CAP Prov: BRY HUTTON DO 10/21/20 Meloxicam (Mobic) 15 Mg Tablet 15 MG PO DAILY, #10 TAB Prov: BRY HUTTON DO 10/21/20 Cyclobenzaprine HCl (Cyclobenzaprine HCl) 10 Mg Tablet 10 MG PO Q8H PRN for SPASMS, #15 TAB 0 Refills Prov: BRY HUTTON DO 10/21/20 Work/School Note: Work Release Form Date Seen in the Emergency Department: Oct 21, 2020 BRY HUTTON DO Oct 21, 2020 20:51
[2020-10-21 21:10] LABS: BILIRUBIN,URINE NEGATIVE (NEGATIVE); CLARITY,URINE CLEAR; COLOR,URINE YELLOW; GLUCOSE, URINE (UA) NEGATIVE (NEGATIVE); KETONES,URINE NEGATIVE (NEGATIVE); LEUKOCYTE ESTERASE ,URINE NEGATIVE (NEGATIVE); NITRITE,URINE NEGATIVE (NEGATIVE); PH,URINE 6.5 (5-9); PROTEIN,URINE NEGATIVE (NEGATIVE)
[2020-10-21 21:17] LABS: BACTERIA,URINE MODERATE /HPF; WBC,URINE RARE /HPF
--- NOTE | 2020-10-21 22:00 | Diagnostic Imaging Report ---
CLINICAL INDICATION: Patient with abdominal pain and flank pain. EXAMS: X-ray of the chest PA view and x-ray of the abdomen supine and upright views. COMPARISONS: CT scan of the abdomen and pelvis without contrast dated 10/21/2020. All CT scans use one or more of the following dose optimizing techniques: automated exposure control, MA and/or KvP adjustment based on patient size and exam type or iterative reconstruction. FINDINGS: LUNGS/ PLEURA: Lungs are clear. There is no pneumothorax. There is no pleural effusion. MEDIASTINUM: Unremarkable. PULMONARY VASCULATURE: Unremarkable. HEART: Unremarkable. BONES/ EXTRATHORACIC SOFT TISSUE: Unremarkable. ABDOMEN AND PELVIS: Unremarkable x-ray of the abdomen with nonobstructed bowel gas pattern. There is no evidence of abdominal free air. There are multiple shadows of stones overlying the right upper quadrant which correlates to cholelithiasis. This is better seen on comparison CT scan. There are no focal calcifications overlying the expected regions/ pathways of both kidneys, ureters, and bladder regions. IMPRESSION: 1: There is no radiographic evidence of acute cardiopulmonary process. 2: Cholelithiasis which is better seen on comparison CT scan. Otherwise, unremarkable x-ray of the abdomen. Dictated by: Dictated on workstation # [id number]
[2020-10-21 22:02] LABS: BASOPHILS # (AUTO) 0.1 10^3/uL (0.0-0.1); BASOPHILS % (AUTO) 1 % (0-10); EOSINOPHILS % (AUTO) 0 % (0-10); HEMATOCRIT 48 % (35-52); HEMOGLOBIN 15.8 g/dL (11.5-16.0); LYMPHOCYTES % (AUTO) 20 % (12-44); MEAN CORPUSCULAR HEMOGLOBIN 30 pg (25-34); MEAN CORPUSCULAR HGB CONC 33 g/dL (32-36); MEAN CORPUSCULAR VOLUME 91 fL (80-99); MEAN PLATELET VOLUME 11.4 fL (9.0-12.2); MONOCYTES # (AUTO) 0.7 10^3/uL (0.0-1.0); MONOCYTES % (AUTO) 7 % (0-12); NEUTROPHILS # (AUTO) 7.3 10^3/uL (1.8-7.8); NEUTROPHILS % (AUTO) 72 % (42-75); PLATELET COUNT 234 10^3/uL (130-400); WHITE BLOOD COUNT 10.1 10^3/uL (4.3-11.0)
--- NOTE | 2020-10-21 22:18 | Diagnostic Imaging Report ---
Clinical indication: Patient with right flank pain and abdominal pain. Exam: CT exam of the abdomen and pelvis is performed without IV or oral contrast using stone protocol. Coronal and sagittal reformatted images were created. Auto Exposure Controls were utilized during the CT exam to meet ALARA standards for radiation dose reduction. Comparison: CT scan of the abdomen and pelvis performed with contrast dated 03/02/2018. Findings: Visualized lung bases are clear. There are small spurs involving the lumbar spine. There is interval development of multiple stones within the predominantly decompressed gallbladder. There is no CT evidence of acute cholecystitis. The liver, spleen, pancreas and adrenal glands are unremarkable. Both kidneys are unremarkable with no stone or mass. There is no hydronephrosis. Bladder is partially fluid-filled and otherwise unremarkable. Uterus and adnexal structures are unremarkable. There is no significant intra-abdominal or intra-pelvic lymphadenopathy. There is no acute abdominal free air or free fluid. Stable nodular area seen anterior to the spleen which may represent a splenule. There is small amount of stool in the right colon and rectum region. There is no intestinal obstruction. Stable subcentimeter in short axis mesenteric lymph node seen. Appendix is unremarkable. The extra-abdominal and extra-pelvis soft tissue structures are unremarkable. Impression: 1: There is no CT evidence of acute abdominal pelvic process. There are no renal stones seen or hydronephrosis. 2: Interval development of cholelithiasis with multiple stones within the decompressed gallbladder. There is no CT evidence of acute cholecystitis. 3: The remainder of this exam shows no significant abnormality. Dictated by: Dictated on workstation # [id number]
[2020-10-21 22:21] LABS: ALANINE AMINOTRANSFERASE 36 U/L (0-55); ALKALINE PHOSPHATASE 102 U/L (40-136); AMYLASE 65 U/L (25-125); BILIRUBIN,TOTAL 0.2 MG/DL (0.1-1.0); BUN/CREATININE RATIO 15; CARBON DIOXIDE 19 MMOL/L (21-32); CHLORIDE 105 MMOL/L (98-107); CREATININE SERUM 0.81 MG/DL (0.60-1.30); GFR ESTIMATED > 60; GLUCOSE 83 MG/DL (70-105); LIPASE 29 U/L (8-78); POTASSIUM 3.9 MMOL/L (3.6-5.0); SODIUM 140 MMOL/L (135-145); TOTAL PROTEIN 8.7 GM/DL (6.4-8.2)
[2020-10-21] MEDS ORDERED: NITR-65 PO (22:27)
[2020-10-21] MEDS ORDERED: ONDA4TAB11 PO (22:27)
[2020-10-21] MEDS ORDERED: MELO15TA14 PO (22:27)
[2020-10-21] MEDS ORDERED: CYCL10TA9 PO (22:27)
[2020-10-21] MEDS ORDERED: cefTRIAXone FOR IV USE 1,000 MG in WATER (STERILE) FOR INJECTION 10 ML IV ONE (22:30)
[2020-10-21] MEDS ORDERED: KETOROLAC 30 MG/ML VIAL IVP ONE (22:30)
[2020-10-21 22:49] VITALS: BP 140/79
== END 2020-10-21 22:51 | disposition home or self-care (01) ==
LOC: EDUNIT# 20:21 → ER 20:24
DX: K80.20 Calculus of gallbladder without cholecystitis without obstruction (principal); N39.0 Urinary tract infection, site not specified; E66.9 Obesity, unspecified; Z68.37 Body mass index [BMI] 37.0-37.9, adult; Z77.22 Contact with and (suspected) exposure to environmental tobacco smoke (acute) (chronic)
CPT/HCPCS: 36415; 74022; 74176; 80053; 81000; 82150; 83690; 84703; 85025; 87088; 93041

== ENCOUNTER 2020-11-10 05:39 | Outpatient (RCR) | payer OTHER ==
[~2020-11-10] VITALS: Ht 167.7 cm; Wt 109.1 kg
[~2020-11-10 05:39] MED LIST changes: +CYCL10TA9 PO; +FLUT9.9S NS; +MELO15TA14 PO; +NITR-65 PO; +ONDA4TAB11 PO
[2020-11-10] MEDS ORDERED: bcp PO (15:14)
== END 2020-11-10 15:15 | disposition home or self-care (01) ==
LOC: PREOP 05:39
PROVIDERS: ATTEND Surgery
DX: Z01.818 Encounter for other preprocedural examination (principal)

== ENCOUNTER 2020-11-10 22:34 | Emergency (ER) | payer OTHER ==
[~2020-11-10] VITALS: Ht 167.6 cm; Wt 108.9 kg
[~2020-11-10 22:34] MED LIST changes: +bcp PO
[2020-11-10 22:40] VITALS: BP 176/105
--- NOTE | 2020-11-10 23:13 | ED General ---
General Chief Complaint: Rect Problems Stated Complaint: RECTAL BLEEDING Nursing Triage Note: PT REPORTS HAVING A X1 BOWEL MOVEMENT TODAY WITH "OLD BLOOD" IN IT. Nursing Sepsis Screen: No Definite Risk Source of Information: Patient History of Present Illness Date Seen by Provider: Nov 10, 2020 Time Seen by Provider: 22:55 Initial Comments PT ARRIVES VIA POV STATES SHE HAD BM THIS AM AROUND 0700 AND "THERE WAS A STRING OF OLD BLOOD IN IT" STATES SHE ALSO STARTED HER PERIOD AT THE SAME TIME THE BOWEL MOVEMENT STATES TONIGHT AT WORK, SHE WENT TO THE BATHROOM TO URINATE, AND AFTER SHE HAD "CLEANED OFF" "A BUNCH OF OLD BLOOD SHOT OUT"--STATES IT CAME FROM HER RECTUM, SO SHE RUSHED HERE. NO RECTAL PAIN DENIES ANY HARD STOOLS OR STRAINING NO ABDOMINAL PAIN NO NAUSEA/VOMITING NO FEVER NO URINARY SYMPTOMS NO HISTORY OF SIMILAR PCP: [facility] Allergies and Home Medications Allergies Coded Allergies: No Known Drug Allergies (Unverified , 09/25/10) Home Medications Fluticasone Propionate 9.9 Ml [place].susp, 1 SPRAY NS DAILY, (Reported) 1 SPRAY EACH NARE DAILY [bcp] , 1 TAB PO DAILY, (Reported) Patient Home Medication List Home Medication List Reviewed: Yes Review of Systems Review of Systems Constitutional: no symptoms reported Respiratory: no symptoms reported Cardiovascular: no symptoms reported Gastrointestinal: see HPI Genitourinary: no symptoms reported : No LMP: Nov 10, 2020 Musculoskeletal: no symptoms reported Skin: no symptoms reported Psychiatric/Neurological: No Symptoms Reported Hematologic/Lymphatic: No Symptoms Reported Immunological/Allergic: no symptoms reported Past Ajdjqgj-Nqilwy-Qlznsz Hx Past Med/Social Hx: Reviewed and Corrections made Patient Social History Alcohol Use: Occasionally Uses Drug of Choice: DENIES Smoking Status: Never a Smoker 2nd Hand Smoke Exposure: Yes Recent Infectious Disease Expo: No Recent Hopitalizations: No Seasonal Allergies Seasonal Allergies: Yes Past Medical History Surgeries: Yes (TAILBONE SURGERY A LONG TIME AGO/?PILONIDAL CYST: OVARIAN CYST REMOVAL) Respiratory: No Cardiac: No Neurological: No 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 Reproductive Disorders: Menstrual Problems, Ovarian Cyst Genitourinary: No Gastrointestinal: Yes (GALLSTONES NOTED ON CT SCAN 10/21/20) Gall Bladder Disease Musculoskeletal: No Endocrine: No HEENT: No Cancer: No Psychosocial: No Integumentary: No Blood Disorders: No Physical Exam Vital Signs Vital Signs - First Documented 11/10/20 22:40 Temp 36.2 Pulse 106 Resp 16 B/P (MAP) 176/105 (128) O2 Delivery Room Air Capillary Refill : Less Than 3 Seconds Height, Weight, BMI Height: 5'6.00" Weight: 218lbs. oz. 98.301433zb; 38.00 BMI Method:Stated General Appearance: No Apparent Distress, WD/WN, Obese Respiratory: Normal Breath Sounds, No Accessory Muscle Use, No Respiratory Distress Cardiovascular: Regular Rate, Rhythm, No Murmur Gastrointestinal: Non Tender, Soft Rectal: Normal Exam, Normal Rectal Tone, Heme Negative Stool, Hemorrhoids (VERY MINOR EXTERNAL HEMORRHOID. NOT INFLAMED, NOT BLEEDING. NOT TENDERN. ); No Mass, No Tenderness; Other (NO GROSS BLOOD ON RECTAL EXAM. NO STOOL IN RECTUM. NO EVIDENCE OF ANAL FISSURE OR FISTULA. ) Genital/Rectal: Other (NO BLOOD FROM VAGINA AT THIS TIME. ) Back: No CVA Tenderness Neurologic/Psychiatric: Alert, Oriented x3 Skin: Normal Color, Warm/Dry Progress/Results/Core Measures Suspected Sepsis Recent Fever Within 48 Hours: No Infection Criteria Present: None New/Unexplained Altered Menta: No Sepsis Screen: No Definite Risk SIRS Temperature: Pulse: 106 Respiratory Rate: 16 Blood Pressure 176 /105 Mean: 128 Results/Orders Vital Signs/I&O 11/10/20 22:40 Temp 36.2 Pulse 106 Resp 16 B/P (MAP) 176/105 (128) O2 Delivery Room Air Capillary Refill : Less Than 3 Seconds Blood Pressure Mean: 128 Progress Note : Progress Note HEMOCCULT NEGATIVE. NO EVIDENCE OF RECTAL BLEEDING ON EXAM. Departure Impression Primary Impression: General medical exam Disposition: 01 HOME, SELF-CARE Condition: Stable Departure-Patient Inst. Referrals: [facility] (PCP/Family) Primary Care Physician Patient Instructions: NO INSTRUCTIONS GIVEN Add. Discharge Instructions: FOLLOW UP WITH YOUR DR IF SYMPTOMS PERSIST All discharge instructions reviewed with patient and/or family. Voiced understanding. BRY HUTTON DO Nov 10, 2020 23:13
== END 2020-11-10 23:19 | disposition home or self-care (01) ==
LOC: EDUNIT# 22:34 → ER 22:37
DX: Z00.00 Encounter for general adult medical examination without abnormal findings (principal); E66.9 Obesity, unspecified; Z77.22 Contact with and (suspected) exposure to environmental tobacco smoke (acute) (chronic); Z68.38 Body mass index [BMI] 38.0-38.9, adult
CPT/HCPCS: 82274

== ENCOUNTER 2020-11-17 07:04 | Day surgery (SDC) | payer OTHER ==
[2020-11-17] VITALS (12 sets, daily range): BP systolic 120–156; BP diastolic 71–98
[~2020-11-17] VITALS: Ht 167.7 cm; Wt 109.1 kg
[2020-11-17] MEDS ORDERED: ceFAZolin 2 GM IV Premixed 50 ML IV ONE ×2 (07:15→08:15)
[2020-11-17] MEDS ORDERED: proPOfol 200 MG/20 ML (DIPRIVAN) VIAL IV ONE (07:16)
[2020-11-17] MEDS ORDERED: fentaNYL INJ 100 MCG/2 ML AMP ONE (07:16)
[2020-11-17] MEDS ORDERED: MIDAZOLAM 2 MG/2 ML (VERSED) VIAL ONE (07:16)
[2020-11-17] MEDS ORDERED: LIDOCAINE PF 2% 5 ML (XYLOCAINE) VIAL ONE (07:16)
[2020-11-17] MEDS ORDERED: ROCURONIUM 10 MG/ML 5 ML SYRINGE IV ONE (07:16)
[2020-11-17] MEDS ORDERED: SEVOFLURANE (ULTANE) 15 ML INHAL SOLN ONE ×2 (07:16→07:48)
[2020-11-17] MEDS ORDERED: NEOSTIGMINE 3 MG/3 ML VIAL ONE (07:16)
[2020-11-17] MEDS ORDERED: GLYCOPYRROLATE 0.2 MG/ML (ROBINUL) 2 ML VIAL ONE (07:16)
[2020-11-17] MEDS ORDERED: ONDANSETRON 4 MG/2 ML (SDV) Z0FRAN IV ONE (07:30)
[2020-11-17] MEDS ORDERED: FAMOTIDINE 20MG/2ML IV (PEPCID) IV ONE (07:30)
[2020-11-17] MEDS ORDERED: IOPAMIDOL 61% 30 ML (ISOVUE 300) VIAL ONE (07:34)
[2020-11-17] MEDS: LACTATED RINGERS 1,000 ML IV PRN ×2 (07:48→10:36)
--- NOTE | 2020-11-17 08:50 | Progress Note-Pre Operative ---
Pre-Operative Progress Note H&P Reviewed The H&P was reviewed, patient examined and no changes noted. Time Seen by Provider: 08:46 Date H&P Reviewed: Nov 17, 2020 Time H&P Reviewed: 08:47 Pre-Operative Diagnosis: cholelithiasis/cholecystitis LUCRETIA SINGH DO Nov 17, 2020 08:50
[2020-11-17] MEDS ORDERED: HYDROmorphone 2 MG/ML VIAL (DILAUDID) ONE (09:20)
--- NOTE | 2020-11-17 09:52 | Progress Note-Post Operative ---
Post-Operative Progess Note Surgeon (s)/Mercerizing Range Controller (s) Surgeon LUCRETIA SINGH DO Mercerizing Range Controller: Jessica Pre-Operative Diagnosis cholelithiasis/cholecystitis Post-Operative Diagnosis same Procedure & Operative Findings Date of Procedure 11/17/20 Procedure Performed/Findings PROCEDURE: Laparoscopic cholecystectomy with intraoperative cholangiogram. COMPLICATIONS: None. PROCEDURE: The patient was taken to the operating suite and was prepped and draped in sterile fashion. A surgical pause was performed. Just superior to the umbilicus, a 12 mm incision was made. Dissection was taken down to the fascia, which was then scored and grasped with a Elaina and the abdomen was then entered. A 0 Vicryl suture was placed in a [id number] fashion and a Osorio trocar was placed and secured. Pneumoperitoneum was achieved. A 5mm trochar place in the subxyphoid and 2 in the right upper quadrant. The gallbladder was then grasped and elevated. The gallbladder was very large and there were adhesions to it; usually indicative of previous gallbladder attacks. The cystic duct, and cystic artery were then dissected out. Clip was placed on the distal portion of the cystic duct which was then partially transected. An arrow catheter was inserted into the duct. The cholangiogram was then performed. No filing defects and contrast made its way into the duodenum. Catheter removed. Clips were placed on proximal portion of the cystic duct and then the duct was then transected. Clips were placed along the proximal and distal portion of the cystic artery which was then transected. Hook cautery was used to dissect the gallbladder from the gallbladder fossa achieving hemostasis. The gallbladder was placed in an Endobag and removed through the 12 mm trocar site. The abdomen was then reinspected. Copious amounts of irrigation were used to irrigate the abdomen and there were no signs of active bleeding. Hemostasis had been achieved. The 12 mm fascial defect was then closed with 0 Vicryl suture that had been placed in a [id number] fashion. The abdomen was then desufflated, the trocars were removed. The abdomen was then washed and dried. The skin was then closed using 4-0 Monocryl in a subcuticular fashion. The abdomen was washed and dried and Skin Affix was place over incisions. Patient tolerated the procedure well without any complications and was taken to the recovery room in stable condition. Dr. Lopez assisted on this case helping to make incision, close incisions identify anatomy and hold anatomy out of the way. Anesthesia Type GET Estimated Blood Loss Estimated blood loss (mL): scant Specimens/Packing Specimens Removed GB and contents LUCRETIA SINGH DO Nov 17, 2020 09:52
[2020-11-17] MEDS ORDERED: ACHD5005 PO (09:54)
--- NOTE | 2020-11-17 09:54 | Progress Note-Post Operative ---
Post-Operative Progess Note Surgeon (s)/Scrap Hoist Operator (s) Surgeon LUCRETIA SINGH DO Scrap Hoist Operator: none Pre-Operative Diagnosis Gastritis Post-Operative Diagnosis Gastric ulcer vs diverticulum gastritis esophagitis Procedure & Operative Findings Date of Procedure 11/17/20 Procedure Performed/Findings EGD with bx Anesthesia Type GET Estimated Blood Loss Estimated blood loss (mL): scant Specimens/Packing Specimens Removed antral bx body of stomach bx GE jxn LUCRETIA SINGH DO Nov 17, 2020 09:54
--- NOTE | 2020-11-17 09:55 | Endoscopy Discharge Instruct ---
Endo Procedure/Findings Findings 1.: Gastritis 2.: Other Findings (??ulcer vs diverticulum) Discharge Instructions - Activity: You might feel a little sleepy until tomorrow. This is due to the medicine you received to relax you. Until tomorrow, you should: NOT drive a car, operate machinery or power tools. NOT drink any alcoholic beverages. NOT make any important decisions or sign importortant papers. Do not return to work until tomorrow, unless otherwise instructed. Resume previous activities tomorrow. Diet: Start by taking liquids. If you tolerate liquids, advance to solid food. 1.: EGD in 6-8 weeks Notify Physician - If you experience excessive bleeding, unusual abdominal pain, fever, or chest pain, contact your doctor immediately. LUCRETIA SINGH DO Nov 17, 2020 09:55
--- NOTE | 2020-11-17 09:56 | Discharge Inst-Surgical ---
Discharge Inst-Surgical Depart Medication/Instructions New, Converted or Re-Newed RX: RX Given to Pt/Family Patient Instructions Follow up Appt: Make appointment for 1 week. [phone] Instructions: No lifting greater than 20 pounds. No strenuous activity. May shower in 24 hours, no tub bath or soaking. Use incentive spirometer at home as directed. No Smoking Skin/Wound Care: May remove bandages in am. You need to leave the Dermabond on incision it will fall off on it's own. Symptoms to Report: Appetite Changes, Extremity Discoloration, Numbness/Tingling, Swelling Increased, Bleeding Excessive, Eyesight Changes, Pain Increased, Urine Color Change, Constipation(Persistent), Fever over 101 degree F, Pain/Pressure in chest, Urinating Difficulty, Cough Up/Vomit Blood, Heart Beat Irreg/Pounding, Pain/Pressure in jaw, Cramps in feet or legs, Lightheadedness, Pain/Pressure in shoulder, Diarrhea(Persistent), Memory Changes Suddenly, Questions/Concerns, Weight gain consecutive days, Dizziness/Fainting, Nausea/Vomiting, Shortness of Breath, Weight gain over 2 pounds If questions or concerns contact your physician Or seek help at emergency department. Activity Activity as Tolerated: Yes Activity Instructions: Avoid Stress to Incision Driving Instructions: No Driving/Refer to Diet Discharge Diet: Avoid Fatty Foods, Low Fat/Low Cholesterol If Any Problems/Questions/Issu: Contact Your Physician, Go to Emergency Room Skin/Wound Care Infection Signs and Symptoms: Increased Redness, Foul Odor of Wound, Increased Drainage, Skin Itchy or Has a Rash, Increased Swelling, Temperature Above 101 F Wound Care Comment: heating pad to shoulder or neck for pain tonight Bathing Instructions: Shower Stitches/Theodore/Dermabond Dis: Clarissaond LUCRETIA SINGH DO Nov 17, 2020 09:56
[2020-11-17] MEDS ORDERED: HYDROmorphone 2 MG/ML VIAL (DILAUDID) IV ONE (10:30)
[2020-11-17] MEDS ORDERED: morphine INJ 10 MG/ML 1ML (SYR OR VIAL) IVP ONE (10:30)
[2020-11-17] MEDS: ONDANSETRON 4 MG/2 ML (SDV) Z0FRAN IVP PRN ×2 (10:37→10:54)
--- NOTE | 2020-11-17 11:08 | Diagnostic Imaging Report ---
INDICATION: Cholelithiasis, flank pain, undergoing cholecystectomy FINDINGS: Single intraoperative cholangiogram image along with a cineloop are submitted. There is cannulation of the extra hepatic biliary tree. Images demonstrate contrast opacification of the biliary system. Biliary tree is not significantly dilated. There was no persistent filling defect to indicate a retained stone. Flow was present into the duodenum. IMPRESSION: Negative laparoscopic cholangiogram. Fluoroscopy Time: 10.2 seconds Number of Images Acquired: 1 static, 1 cineloop Dictated by: Dictated on workstation # [id number]
--- NOTE | 2020-11-17 12:45 | Anesthesia-General Post-Op ---
General Patient Condition Mental Status/LOC: Same as Preop Cardiovascular: Satisfactory Nausea/Vomiting: Absent Respiratory: Satisfactory Pain: Controlled Complications: Absent Post Op Complications Complications None Follow Up Care/Instructions Patient Instructions None needed. Anesthesia/Patient Condition Patient Condition Patient is doing well, resting comfortably but has complaints of pain with movement but nausea is improved, stable vital signs, no apparent adverse anesthesia problems. EZRA BARNES DO Nov 17, 2020 12:44
--- NOTE | 2020-11-17 20:33 | OPERATIVE REPORT ---
DATE OF SERVICE: 11/17/2020 PREOPERATIVE DIAGNOSES: Epigastric pain, right upper quadrant pain with some possible gastritis. POSTOPERATIVE DIAGNOSES: Gastritis, questionable gastric ulcer versus gastric diverticulum and some esophagitis. PROCEDURE: EGD with biopsy. SURGEON: Barrera Landry DO HIDE PULLER: None. ANESTHESIA: General endotracheal tube. SPECIMEN: Biopsy from the antrum what it was either a diverticulum or an ulcer as well as then biopsy of the body of stomach and biopsy of GE junction. BLOOD LOSS: Scant. FLUIDS: Per anesthesia. POSTOPERATIVE CONDITION: Stable. INDICATION FOR PROCEDURE: The patient is a 30-year-old female who has been having some epigastric and right upper quadrant pain and some sounds like gastritis symptoms, needed a workup. FINDINGS: The patient had some gastritis what looked like either a gastric ulcer or gastric diverticulum and some esophagitis. PROCEDURE NOTE: After informed consent was obtained, the patient was in the operating room. She had just gotten her gallbladder removed and now performed the EGD. Placed the scope down the mouth through the esophagus into the stomach, saw some mild gastritis in the stomach, pushed into the duodenum. Duodenum looked fine. Pulled back and just before the pylorus, there was what looked like either a diverticulum or an ulcer, did not appear to be any healing in the bed of this, looked more like a diverticulum. We did a biopsy here. Retroflexed the scope, did a biopsy of body of stomach and then pulled the scope into the GE junction, saw some esophagitis, took a picture of this and then did a biopsy. At this point, then pushed the scope into the stomach, suctioned all the air out and then pulled the scope up the esophagus and out the mouth. The patient tolerated the procedure. Job ID: [id number] DocumentID: [id number] Dictated Date: 11/17/2020 14:40:10 Infertility Medical Assistant Date: 11/17/2020 20:32:07 Dictated By: BARRERA LANDRY DO
== END 2020-11-17 13:15 | disposition home or self-care (01) ==
LOC: SDC 07:04
PROVIDERS: ATTEND Surgery
DX: K29.50 Unspecified chronic gastritis without bleeding (principal); K21.00 Gastro-esophageal reflux disease with esophagitis, without bleeding; K80.10 Calculus of gallbladder with chronic cholecystitis without obstruction; K62.5 Hemorrhage of anus and rectum; E66.9 Obesity, unspecified; Z68.38 Body mass index [BMI] 38.0-38.9, adult; Z79.899 Other long term (current) drug therapy; Z83.3 Family history of diabetes mellitus
CPT/HCPCS: 76000; 84703; 87081; 88304; 88305

== ENCOUNTER 2021-06-09 05:30 | Outpatient (RCR) | payer OTHER ==
[~2021-06-09] VITALS: Ht 167.6 cm; Wt 108.9 kg
[~2021-06-09 05:30] MED LIST changes: +ACHD5005 PO; +CETI10CA PO; +PANT40TA52 PO
== END 2021-06-09 09:41 | disposition home or self-care (01) ==
LOC: PREOP 05:30
PROVIDERS: ATTEND Surgery
DX: Z01.818 Encounter for other preprocedural examination (principal)
CPT/HCPCS: 87635

== ENCOUNTER 2021-06-13 09:29 | Day surgery (SDC) | payer OTHER ==
[~2021-06-13] VITALS: Ht 170 cm; Wt 108.9 kg
[2021-06-13] MEDS ORDERED: LACTATED RINGERS 1,000 ML IV STA (09:39)
[2021-06-13 09:45] VITALS: BP 144/90
[2021-06-13] MEDS ORDERED: HURRICAINE EXT TUBE (BENZOCAINE) XX PRN (09:45)
[2021-06-13] MEDS ORDERED: LACTATED RINGERS 1,000 ML IV ONE (09:45)
[2021-06-13] MEDS ORDERED: FAMOTIDINE 20MG/2ML IV (PEPCID) ONE (10:19)
[2021-06-13] MEDS ORDERED: FAMOTIDINE 20MG/2ML IV (PEPCID) IV ONE (10:30)
--- NOTE | 2021-06-13 10:47 | Progress Note-Pre Operative ---
Pre-Operative Progress Note H&P Reviewed The H&P was reviewed, patient examined and no changes noted. Time Seen by Provider: 10:45 Date H&P Reviewed: Jun 13, 2021 Time H&P Reviewed: 10:45 Pre-Operative Diagnosis: chronic esophagitis LUCRETIA SINGH DO Jun 13, 2021 10:47
[2021-06-13] MEDS ORDERED: MIDAZOLAM 2 MG/2 ML (VERSED) VIAL ONE (11:00)
[2021-06-13] MEDS ORDERED: proPOfol 200 MG/20 ML (DIPRIVAN) VIAL IV ONE (11:00)
--- NOTE | 2021-06-13 11:24 | Progress Note-Post Operative ---
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 She was administered IV sedation by the SIGNAL REPAIRER who then monitored vitals the entire time, heart rate, blood pressure and pulse ox and the scope was inserted down the mouth through the esophagus into the stomach. On the way down, noted some mild esophagitis, took a picture and pushed into the stomach. Noted a gastric diverticula and took a picture of it; then pushed past the antrum into the duodenum. Duodenum looked good. Pulled back and did a biopsy of antrum, then retroflexed the scope, did not see a hiatal hernia. Finally pulled the scope into the GE junction and then did a biopsy of the GE junction. Pushed the scope back into the stomach, suctioned all the air out of the stomach. At this point pulled the scope up the esophagus and out the mouth. The patient tolerated the procedure, and she recovered in endoscopy suite. Anesthesia Type IV sedation by SIGNAL REPAIRER Estimated Blood Loss Estimated blood loss (mL): scant Specimens/Packing Specimens Removed antral bx GE jxn bx LUCRETIA SINGH DO Jun 13, 2021 11:24
[2021-06-13 11:25] VITALS: BP 122/69
--- NOTE | 2021-06-13 11:25 | Endoscopy Discharge Instruct ---
Endo Procedure/Findings Findings 1.: Gastritis 2.: Other Findings (Gastric diverticula) 3.: Other Findings (mild esophagitis) Discharge Instructions - Activity: You might feel a little sleepy until tomorrow. This is due to the medicine you received to relax you. Until tomorrow, you should: NOT drive a car, operate machinery or power tools. NOT drink any alcoholic beverages. NOT make any important decisions or sign importortant papers. Do not return to work until tomorrow, unless otherwise instructed. Resume pre vious activities tomorrow. Diet: Start by taking liquids. If you tolerate liquids, advance to solid food. 1.: EGD in 3 years Notify Physician - If you experience excessive bleeding, unusual abdominal pain, fever, or chest pain, contact your doctor immediately. LUCRETIA SINGH DO Jun 13, 2021 11:25
[2021-06-13 11:30] VITALS: BP 126/60
[2021-06-13 11:35] VITALS: BP 126/60
[2021-06-13 12:00] VITALS: BP 132/63
[2021-06-13 12:05] VITALS: BP 132/63
--- NOTE | 2021-06-13 12:53 | Anesthesia-General Post-Op ---
MAC Patient Condition Mental Status/LOC: Same as Preop Cardiovascular: Satisfactory Nausea/Vomiting: Absent Respiratory: Satisfactory Pain: Controlled Complications: Absent Post Op Complications Complications None Follow Up Care/Instructions Patient Instructions None needed. Anesthesiology Discharge Order Discharge Order Patient is doing well, no complaints, stable vital signs, no apparent adverse anesthesia problems. No complications reported per nursing. FABIAN INGRAM CRNA Jun 13, 2021 12:53
== END 2021-06-13 12:10 | disposition home or self-care (01) ==
LOC: ENDO 09:29
PROVIDERS: ATTEND Surgery
DX: K29.50 Unspecified chronic gastritis without bleeding (principal); K31.4 Gastric diverticulum; K21.00 Gastro-esophageal reflux disease with esophagitis, without bleeding; K22.89 Other specified disease of esophagus; E66.9 Obesity, unspecified; Z83.3 Family history of diabetes mellitus; Z68.37 Body mass index [BMI] 37.0-37.9, adult; Z82.49 Family history of ischemic heart disease and other diseases of the circulatory system; Z90.49 Acquired absence of other specified parts of digestive tract
CPT/HCPCS: 84703

== ENCOUNTER 2021-10-27 17:49 | Emergency (ER) | payer OTHER ==
[~2021-10-27] VITALS: Ht 167 cm; Wt 108.8 kg
[~2021-10-27 17:49] MED LIST changes: +CYCL10TA25 PO; -CYCL10TA9 PO
--- NOTE | 2021-10-27 18:04 | ED Chest Pain ---
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 She had 1 episode of emesis. No fever chills diarrhea cough or shortness of air. No history of heart disease. She does have some reflux today and yesterday. Multiple episodes in the past of ER visits for gastritis and gallstones. Last year she has had [address] Singh EGD. Found a polyp which was biopsied and he has her set up for another repeat scope in 6 months. She took an aspirin 325 mg prior to coming out. No antiacids. She is on Protonix and atorvastatin. No history of hypertension smoking diabetes or previous coronary disease. No personal or family history of coronary disease or blood clots or PE. No cough shortness of air hemoptysis. She does have some nasal congestion for the past week or so she has chalked up to the weather. No new diarrhea. She does occasionally have loose stools with me on what she eats after having her gallbladder out. Allergies and Home Medications Allergies Coded Allergies: No Known Drug Allergies (Unverified , 11/17/20) Patient Home Medication List Home Medication List Reviewed: Yes Cetirizine HCl (Zyrtec) 10 Mg Capsule, 10 MG PO DAILY, (Reported) Entered as Reported by: MEGA SKINNER on 06/06/21 1438 Fluticasone Propionate (Flonase Allergy Relief) 9.9 Ml Marshall.susp, 1 SPRAY NS DAILY, (Reported) Entered as Reported by: OLMAN PATTERSON on 10/21/202048 Ondansetron (Ondansetron Odt) 4 Mg Tab.rapdis, 4 MG PO Q6H PRN for NAUSEA/VOMITING Prescribed by: JAIME FLOREZ on 10/27/211945 Pantoprazole Sodium (Pantoprazole Sodium) 40 Mg Tablet.dr, 40 MG PO DAILY, (Reported) Entered as Reported by: MEGA SKINNER on 06/06/21 1438 Pantoprazole Sodium (Pantoprazole Sodium) 20 Mg Tablet.dr, 20 MG PO BID Prescribed by: JAIME FLOREZ on 10/27/211945 Sucralfate (Carafate) 1 Gm Tablet, 1 GM PO QIDACHS Prescribed by: JAIME FLOREZ on 10/27/211945 Review of Systems Review of Systems Constitutional: No chills, No fever EENTM: No Blurred Vision, No Double Vision Respiratory: Denies Cough, Denies Shortness of Air Cardiovascular: See HPI, Chest Pain; Denies Lightheadedness Gastrointestinal: See HPI, Abdominal Pain; Denies Constipated, Denies Diarrhea; Nausea; Denies Poor Fluid Intake; Vomiting Genitourinary: Denies Burning, Denies Discharge Musculoskeletal: No back pain, No joint pain All Other Systems Reviewed Negative Unless Noted: Yes Past Jfmgiej-Dcwzde-Qpbcll Hx Patient Social History Tobacco Use?: No Use of E-Cig and/or Vaping dev: No Substance use?: No Alcohol Use?: Yes Pt feels they are or have been: No Immunizations Up To Date First/Initial COVID19 Vaccinat: UNK Second COVID19 Vaccination 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: [employer] Seasonal Allergies Seasonal Allergies: Yes Past Medical History Surgeries: Yes (TAILBONE SURGERY A LONG TIME AGO/?PILONIDAL CYST: OVARIAN CYST REMOVAL) Gallbladder Respiratory: No Cardiac: No Neurological: No 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 oz. 98.477516hj; 37.68 BMI Method:Stated General Appearance: No Apparent Distress, Mild Distress HEENT: PERRL/EOMI, Pharynx Normal, Moist Mucous Membranes Neck: Full Range of Motion, Normal Inspection Respiratory: Lungs Clear, Normal Breath Sounds, No Accessory Muscle Use, No Respiratory Distress Cardiovascular: Regular Rate, Rhythm, No Edema, Normal Peripheral Pulses Gastrointestinal: Normal Bowel Sounds, Non Tender, Soft Extremity: Normal Capillary Refill, Normal Inspection, No Pedal Edema Neurologic/Psychiatric: Alert, Oriented x3, No Motor/Sensory Deficits Skin: Normal Color, Warm/Dry Progress/Results/Core Measures Results/Orders Lab Results Laboratory Tests Test 10/27/21 17:58 10/27/21 18:00 10/27/21 18:38 10/27/21 20:25 Range/Units White Blood Count 9.0 4.3-11.0 10^3/uL Red Blood Count 5.05 3.80-5.11 10^6/uL Hemoglobin 15.2 11.5-16.0 g/dL Hematocrit 45 35-52 % Mean Corpuscular Volume 90 80-99 fL Mean Corpuscular Hemoglobin 30 25-34 pg Mean Corpuscular Hemoglobin Concent 34 32-36 g/dL Red Cell Distribution Width 12.3 10.0-14.5 % Platelet Count 241 130-400 10^3/uL Mean Platelet Volume 11.9 9.0-12.2 fL Immature Granulocyte % (Auto) 1 % Neutrophils (%) (Auto) 67 42-75 % Lymphocytes (%) (Auto) 22 12-44 % Monocytes (%) (Auto) 9 0-12 % Eosinophils (%) (Auto) 0 0-10 % Basophils (%) (Auto) 1 0-10 % Neutrophils # (Auto) 6.1 1.8-7.8 10^3/uL Lymphocytes # (Auto) 2.0 1.0-4.0 10^3/uL Monocytes # (Auto) 0.8 0.0-1.0 10^3/uL Eosinophils # (Auto) 0.0 0.0-0.3 10^3/uL Basophils # (Auto) 0.1 0.0-0.1 10^3/uL Immature Granulocyte # (Auto) 0.1 0.0-0.1 10^3/uL Sodium Level 138 135-145 MMOL/L Potassium Level 3.6 3.6-5.0 MMOL/L Chloride Level 106 98-107 MMOL/L Carbon Dioxide Level 19 L 21-32 MMOL/L Anion Gap 13 5-14 MMOL/L Blood Urea Nitrogen 8 7-18 MG/DL Creatinine 0.71 0.60-1.30 MG/DL Estimat Glomerular Filtration Rate 115 BUN/Creatinine Ratio 11 Glucose Level 83 70-105 MG/DL Calcium Level 9.2 8.5-10.1 MG/DL Corrected Calcium 8.5-10.1 MG/DL Magnesium Level 2.1 1.6-2.4 MG/DL Total Bilirubin 0.3 0.1-1.0 MG/DL Aspartate Amino Transf (AST/SGOT) 21 5-34 U/L Alanine Aminotransferase (ALT/SGPT) 24 0-55 U/L Alkaline Phosphatase 92 40-136 U/L Troponin I < 0.028 < 0.028 <0.028 NG/ML C-Reactive Protein High Sensitivity 1.01 H 0.00-0.50 MG/DL Total Protein 8.2 6.4-8.2 GM/DL Albumin 4.7 H 3.2-4.5 GM/DL Lipase 30 8-78 U/L Urine Color YELLOW Urine Clarity CLEAR Urine pH 7.0 5-9 Urine Specific [place] 1.015 L 1.016-1.022 Urine Protein NEGATIVE NEGATIVE Urine Glucose (UA) NEGATIVE NEGATIVE Urine Ketones NEGATIVE NEGATIVE Urine Nitrite NEGATIVE NEGATIVE Urine Bilirubin NEGATIVE NEGATIVE Urine Urobilinogen 0.2 < = 1.0 MG/DL Urine Leukocyte Esterase NEGATIVE NEGATIVE Urine RBC (Auto) NEGATIVE NEGATIVE Urine RBC NONE /HPF Urine WBC NONE /HPF Urine Squamous Epithelial Cells 0-2 /HPF Urine Crystals NONE /LPF Urine Bacteria TRACE /HPF Urine Casts NONE /LPF Urine Mucus NEGATIVE /LPF Urine Culture Indicated NO Influenza Type A (RT-PCR) Not Detected Not Detecte Influenza Type B (RT-PCR) Not Detected Not Detecte SARS-CoV-2 RNA (RT-PCR) Not Detected Not Detecte My Orders Orders - JAIME FLOREZ Continuous Ekg Monitoring (10/27/21 17:53) Ekg Tracing (10/27/21 17:53) Ua Culture If Indicated (10/27/21 17:53) Urine Bedside (10/27/21 17:53) Lidocaine 2% Viscous 15 Ml (Xylocaine Vi (10/27/21 18:30) Famotidine Tablet (Pepcid Tablet) (10/27/21 18:18) Antacid Suspension (Mylanta Suspension (10/27/21 18:30) Ondansetron Injection (Zofran Injectio (10/27/21 18:30) Cbc With Automated Diff (10/27/21 18:18) Comprehensive Metabolic Panel (10/27/21 18:18) Hs C Reactive Protein (10/27/21 18:18) Magnesium (10/27/21 18:18) Troponin I [place] (10/27/21 18:18) Chest 1 View, Ap/Pa Only (10/27/21 18:18) Lipase (10/27/21 18:18) Covid 19 Inhouse Test (10/27/21 18:18) Influenza A And B By Pcr (10/27/21 18:18) Troponin I [place] (10/27/21 20:00) Medications Given in ED Current Medications Medications Dose Ordered Sig/Sarah Route Start Time Stop Time Status Last Admin Dose Admin Al Hydrox/Mg Hydrox/Simethicone 30 ml ONCE ONCE PO 10/27/21 18:30 10/27/21 18:31 DC 10/27/21 18:35 30 ML Lidocaine HCl 15 ml ONCE ONCE PO 10/27/21 18:30 10/27/21 18:31 DC 10/27/21 18:35 15 ML Ondansetron HCl 4 mg ONCE ONCE IVP 10/27/21 18:30 10/27/21 18:31 DC 10/27/21 18:34 4 MG Vital Signs/I&O 10/27/21 10/27/21 17:54 18:40 Temp 36.9 Pulse 106 92 Resp 18 18 B/P (MAP) 74/ 130/73 Pulse Ox 96 99 O2 Delivery Room Air Room Air O2 Flow Rate 147.00 Progress Progress Note #1: Time: 18:32 Progress Note Patient's care some tenderness in her epigastric region. Suspect gastritis or esophageal spasms versus PUD. We will give her a GI cocktail and some Pepcid. We will get a chest x-ray, troponin and labs. Progress Note #2: Time: 19:36 Progress Note Pain went away after the GI cocktail. Patient is having low blood gas and belching. Suspect gastritis/esophagitis. We will give a dose of troponin III hours after initiation of pain, a little before 1999. We will put her on Caraf ate and Protonix 20 mg twice daily and follow-up with Dr. Singh. Initial ECG Impression Date: Oct 27, 2021 Initial ECG Impression Time: 17:56 Initial ECG Rate: 99 Initial ECG Rhythm: Normal Sinus Initial ECG Intervals: Normal Initial ECG Impression: Normal Comment Normal sinus rhythm without clinically relevant ST elevation or depression. Diagnostic Imaging Diagonstic Imaging: Xray Plain Films/CT/US/NM/MRI: chest Comments [facility]. [place], [place] NAME: MARLENE SHARP [facility] REC#: [id number] PT STATUS: REG ER : 1990 PHYSICIAN: JAIME FLOREZ MD ADMIT DATE: 10/27/21/ER Signed Date of Exam:10/27/21 CHEST 1 VIEW, AP/PA ONLY INDICATION: Midsternal chest pain. FINDINGS: The lungs are clear. No failure, effusion or pneumothorax. IMPRESSION: No acute appearing abnormality. Dictated by: Dictated on workstation # [id number] Dict: 10/27/21 184 Trans: 10/27/211850 [facility] [id number] Interpreted by: CASSIUS RDZ Electronically signed by: CASSIUS RDZ 10/27/211850 Reviewed: Reviewed by Me Departure Impression Primary Impression: Gastritis Qualified Codes: K29.50 - Unspecified chronic gastritis without bleeding Additional Impression: Esophagitis Disposition: 01 HOME, SELF-CARE Condition: Stable Departure-Patient Inst. Decision time for Depature: 21:15 Referrals: [facility] (PCP/Family) Primary Care Physician LUCRETIA SINGH DO Patient Instructions: Gastritis (DC), Ulcer and Gastritis Diet Add. Discharge Instructions: If you have pain when you can use Tylenol 1000 mg every 8 hours. You can also use Tums, Rolaids, Mylanta/Maalox or other antacids. car wash supervisor the Carafate and start taking it half an hour before meals and at bedtime for a total of 4 times a day. Do this for 2 weeks to help protect the lining of your stomach and esophagus and promote healing. Start taking Protonix 20 mg twice a day. Ondansetron 1 tablet every 6 hours as necessary for nausea or vomiting Follow-up with Dr. Singh if symptoms are not improving at the end of 2 weeks. Return to ER for intractable pain, vomiting etc. All discharge instructions reviewed with patient and/or family. Voiced understanding. Scripts Pantoprazole Sodium (Pantoprazole Sodium) 20 Mg Tablet.dr 20 MG PO BID for 30 Days, #60 TAB 0 Refills Prov: JAIME FLOREZ 10/27/21 Sucralfate (Carafate) 1 Gm Tablet 1 GM PO QIDACHS for 14 Days, #56 TAB 0 Refills Prov: JAIME FLOREZ 10/27/21 Ondansetron (Ondansetron Odt) 4 Mg Tab.rapdis 4 MG PO Q6H PRN for NAUSEA/VOMITING, #8 TAB 0 Refills Prov: JAIME FLOREZ 10/27/21 Work/School Note: Work Release Form Date Seen in the Emergency Department: Oct 27, 2021 Return to Work: Oct 28, 2021 Restrictions: No Restrictions Copy Copies To 1: LUCRETIA SINGH TITUS J Oct 27, 2021 18:04
[2021-10-27 18:15] LABS: BILIRUBIN,URINE NEGATIVE (NEGATIVE); CLARITY,URINE CLEAR; COLOR,URINE YELLOW; GLUCOSE, URINE (UA) NEGATIVE (NEGATIVE); KETONES,URINE NEGATIVE (NEGATIVE); LEUKOCYTE ESTERASE ,URINE NEGATIVE (NEGATIVE); NITRITE,URINE NEGATIVE (NEGATIVE); PROTEIN,URINE NEGATIVE (NEGATIVE)
[2021-10-27 18:18] LABS: BACTERIA,URINE TRACE /HPF; SQUAMOUS EPITHELIAL CELL,UR 0-2 /HPF
[2021-10-27] MEDS ORDERED: FAMOTIDINE 20 MG (PEPCID) TABLET PO STA (18:18)
[2021-10-27] MEDS ORDERED: ANTACID SUSP 30 ML UDC (MYLANTA) PO ONE (18:30)
[2021-10-27] MEDS ORDERED: ONDANSETRON 4 MG/2 ML (SDV) Z0FRAN IVP ONE (18:30)
[2021-10-27] MEDS ORDERED: LIDOCAINE 2% VISCOUS 15 ML UDC PO ONE (18:30)
[2021-10-27 18:34] LABS: BASOPHILS # (AUTO) 0.1 10^3/uL (0.0-0.1); BASOPHILS % (AUTO) 1 % (0-10); EOSINOPHILS % (AUTO) 0 % (0-10); HEMATOCRIT 45 % (35-52); HEMOGLOBIN 15.2 g/dL (11.5-16.0); LYMPHOCYTES % (AUTO) 22 % (12-44); MEAN CORPUSCULAR HEMOGLOBIN 30 pg (25-34); MEAN CORPUSCULAR HGB CONC 34 g/dL (32-36); MEAN CORPUSCULAR VOLUME 90 fL (80-99); MEAN PLATELET VOLUME 11.9 fL (9.0-12.2); MONOCYTES # (AUTO) 0.8 10^3/uL (0.0-1.0); MONOCYTES % (AUTO) 9 % (0-12); NEUTROPHILS # (AUTO) 6.1 10^3/uL (1.8-7.8); NEUTROPHILS % (AUTO) 67 % (42-75); PLATELET COUNT 241 10^3/uL (130-400)
[2021-10-27 18:38] LABS: ALBUMIN 4.7 GM/DL (3.2-4.5); CHLORIDE 106 MMOL/L (98-107)
[2021-10-27 18:39] LABS: POTASSIUM 3.6 MMOL/L (3.6-5.0); SODIUM 138 MMOL/L (135-145)
[2021-10-27 18:40] LABS: CALCIUM 9.2 MG/DL (8.5-10.1)
[2021-10-27 18:41] LABS: GLUCOSE 83 MG/DL (70-105); TOTAL PROTEIN 8.2 GM/DL (6.4-8.2)
[2021-10-27 18:42] LABS: CARBON DIOXIDE 19 MMOL/L (21-32)
[2021-10-27 18:43] LABS: BILIRUBIN,TOTAL 0.3 MG/DL (0.1-1.0)
[2021-10-27 18:44] LABS: ALKALINE PHOSPHATASE 92 U/L (40-136)
[2021-10-27 18:45] LABS: CREATININE SERUM 0.71 MG/DL (0.60-1.30); GFR ESTIMATED 115
[2021-10-27 18:46] LABS: BUN/CREATININE RATIO 11
[2021-10-27 18:47] LABS: ALANINE AMINOTRANSFERASE 24 U/L (0-55); MAGNESIUM 2.1 MG/DL (1.6-2.4)
[2021-10-27 18:48] LABS: LIPASE 30 U/L (8-78)
--- NOTE | 2021-10-27 18:50 | Diagnostic Imaging Report ---
INDICATION: Midsternal chest pain. FINDINGS: The lungs are clear. No failure, effusion or pneumothorax. IMPRESSION: No acute appearing abnormality. Dictated by: Dictated on workstation # [id number]
[2021-10-27] MEDS ORDERED: ONDA4TAB11 PO (19:46)
[2021-10-27] MEDS ORDERED: PANT20TA18 PO (19:46)
[2021-10-27] MEDS ORDERED: SUCR1TAB36 PO (19:46)
[2021-10-27 21:21] VITALS: BP 142/100
== END 2021-10-27 21:27 | disposition home or self-care (01) ==
LOC: EDUNIT# 17:49 → ER 17:51
DX: K29.70 Gastritis, unspecified, without bleeding (principal); K20.90 Esophagitis, unspecified without bleeding; Z20.822 Contact with and (suspected) exposure to COVID-19
CPT/HCPCS: 36415; 71045; 80053; 81000; 83690; 83735; 84484; 84703; 85025; 86141; 87636; 93005

== ENCOUNTER 2021-11-10 08:33 | Outpatient (RCR) | payer OTHER ==
[~2021-11-10] VITALS: Ht 167.7 cm; Wt 109.1 kg
[~2021-11-10 08:33] MED LIST changes: +PANT20TA18 PO; +SUCR1TAB36 PO
[2021-11-10] MEDS ORDERED: ONDA4TAB11 PO (11:19)
[2021-11-10] MEDS ORDERED: SUCR1TAB PO (11:19)
== END 2021-11-10 11:32 | disposition home or self-care (01) ==
LOC: PREOP 08:33
PROVIDERS: ATTEND Surgery
DX: Z01.812 Encounter for preprocedural laboratory examination (principal); Z20.822 Contact with and (suspected) exposure to COVID-19
CPT/HCPCS: 87635

== ENCOUNTER 2021-11-14 11:21 | Day surgery (SDC) | payer OTHER ==
[~2021-11-14] VITALS: Ht 168 cm; Wt 109.1 kg
[~2021-11-14 11:21] MED LIST changes: +SUCR1TAB PO
[2021-11-14] MEDS ORDERED: LACTATED RINGERS 1,000 ML IV STA (11:25)
[2021-11-14] MEDS ORDERED: HURRICAINE EXT TUBE (BENZOCAINE) XX PRN (11:30)
[2021-11-14 11:35] VITALS: BP 135/88
[2021-11-14] MEDS ORDERED: LACTATED RINGERS 1,000 ML IV ONE (11:35)
--- NOTE | 2021-11-14 12:40 | Progress Note-Pre Operative ---
Pre-Operative Progress Note H&P Reviewed The H&P was reviewed, patient examined and no changes noted. Time Seen by Provider: 12:38 Date H&P Reviewed: Nov 14, 2021 Time H&P Reviewed: 12:38 Pre-Operative Diagnosis: Chronic Gastritis LUCRETIA SINGH DO Nov 14, 2021 12:40
[2021-11-14] MEDS ORDERED: MIDAZOLAM 2 MG/2 ML (VERSED) VIAL ONE (12:53)
[2021-11-14] MEDS ORDERED: proPOfol 200 MG/20 ML (DIPRIVAN) VIAL IV ONE ×2 (12:53)
[2021-11-14 13:53] VITALS: BP 130/83
[2021-11-14] MEDS ORDERED: ONDANSETRON 4 MG/2 ML (SDV) Z0FRAN ONE (13:53)
[2021-11-14] MEDS ORDERED: ONDANSETRON 4 MG/2 ML (SDV) Z0FRAN IVP ONE (13:54)
--- NOTE | 2021-11-14 13:55 | Progress Note-Post Operative ---
Post-Operative Progess Note Surgeon (s)/Manager Technical Training (s) Surgeon LUCRETIA SINGH DO Manager Technical Training: none Pre-Operative Diagnosis Chronic Gastritis Post-Operative Diagnosis Gastric Diverticulum Gastritis Hiatal hernia Procedure & Operative Findings Date of Procedure 11/14/21 Procedure Performed/Findings EGD with bx PROCEDURE NOTE: After informed consent was obtained, the patient was brought to the endoscopy suite, placed in bed in left lateral decubitus position. She was administered IV sedation by the SLEEPING ROOM CLEANER who then monitored vitals the entire time, heart rate, blood pressure and pulse ox and the scope was inserted down the mouth through the esophagus into the stomach. On the way down, noted some mild esophagitis, took a picture, pushed into the stomach, pushed past the antrum into the duodenum. Duodenum looked good. Pulled back and noted what looked like a gastric diverticula; took a picture and then did a biopsy of the antrum. Retroflexed the scope and saw a 1-2cm hiatal hernia, took a picture of this and then pulled the scope into the GE junction, took another picture of the hiatal hernia and then did a biopsy of the GE junction. Pushed the scope back into the stomach, suctioned all the air out of the stomach. At this point pulled the scope up the esophagus and out the mouth. The patient tolerated the procedure, and she recovered in endoscopy suite. Anesthesia Type IV sedation by anesthesia Estimated Blood Loss Estimated blood loss (mL): scant Specimens/Packing Specimens Removed antral bx GE jxn bx LUCRETIA SINGH DO Nov 14, 2021 13:54
--- NOTE | 2021-11-14 13:56 | Endoscopy Discharge Instruct ---
Endo Procedure/Findings Findings 1.: Gastritis 2.: Other Findings (Gastric Diverticula) 3.: Hiatal Hernia Discharge Instructions - Activity: You might feel a little sleepy until tomorrow. This is due to the medicine you received to relax you. Until tomorrow, you should: NOT drive a car, operate machinery or power tools. NOT drink any alcoholic beverages. NOT make any important decisions or sign importortant papers. Do not return to work until tomorrow, unless otherwise instructed. Resume previous activities tomorrow. Diet: Start by taking liquids. If you tolerate liquids, advance to solid food. 1.: EGD in 1 year Notify Physician - If you experience excessive bleeding, unusual abdominal pain, fever, or chest pain, contact your doctor immediately. LUCRETIA SINGH DO Nov 14, 2021 13:56
[2021-11-14 13:58] VITALS: BP 127/96
[2021-11-14 14:00] VITALS: BP 122/88
--- NOTE | 2021-11-14 14:04 | Anesthesia-General Post-Op ---
MAC Patient Condition Mental Status/LOC: Same as Preop Cardiovascular: Satisfactory Nausea/Vomiting: Absent Respiratory: Satisfactory Pain: Controlled Complications: Absent Post Op Complications Complications None Follow Up Care/Instructions Patient Instructions None needed. Anesthesiology Discharge Order Discharge Order Patient is doing well, no complaints, stable vital signs, no apparent adverse anesthesia problems. No complications reported per nursing. RODERICK BARTLETT CRNA Nov 14, 2021 14:04
[2021-11-14 14:30] VITALS: BP 132/80
[2021-11-14 14:45] VITALS: BP 132/80
== END 2021-11-14 14:45 | disposition home or self-care (01) ==
LOC: ENDO 11:21
PROVIDERS: ATTEND Surgery
DX: K29.50 Unspecified chronic gastritis without bleeding (principal); K31.4 Gastric diverticulum; K44.9 Diaphragmatic hernia without obstruction or gangrene; K21.00 Gastro-esophageal reflux disease with esophagitis, without bleeding; E66.9 Obesity, unspecified; Z68.39 Body mass index [BMI] 39.0-39.9, adult
CPT/HCPCS: 84703

== ENCOUNTER 2023-05-12 00:20 | Emergency (ER) | payer SELFPAY ==
[~2023-05-12] VITALS: Ht 167.7 cm; Wt 104.0 kg
[2023-05-12 00:28] VITALS: BP 171/103
--- NOTE | 2023-05-12 00:50 | ED Integumentary General ---
General Stated Complaint: HOT BITE UNDER RT ARM,PT FEELS HOT & COLD History of Present Illness Date Seen by Provider: May 12, 2023 Time Seen by Provider: 00:40 Initial Comments Patient is a 32-year-old female who presents to the emergency room from work this evening with a chief complaint of itchy sore red area to her upper inner right arm. She noticed this at work this evening and then started feeling hot and flushed. Onset of symptoms about 5 or 6 hours ago. Patient has a little bit of nausea. Denies any URI symptoms. No chest pain or shortness of breath. No abdominal pain. No diarrhea, no dysuria. No concerns for COVID. She is uncertain what bit her in her upper arm but it is now tender and red. No active drainage. She has not put anything over the area. She is not a diabetic, she does take cholesterol medication. Timing/Duration: this evening, getting worse, other (6 hours) Severity: moderate Location: extremities (RUE) Possible Cause: insect bite (possible) Associated Symptoms: fever, flushing, other (nausea) Allergies and Home Medications Allergies Coded Allergies: No Known Drug Allergies (Unverified , 11/17/20) Patient Home Medication List Home Medication List Reviewed: Yes Cetirizine HCl (Zyrtec) 10 Mg Capsule, 10 MG PO DAILY, (Reported) Entered as Reported by: MEGA SKINNER on 06/06/21 1438 Doxycycline Hyclate (Doxycycline Hyclate) 100 Mg Tablet, 100 MG PO BID Prescribed by: MICHELLE VO on 05/12/23143 Fluticasone Propionate (Flonase Allergy Relief) 9.9 Ml [place].susp, 1 SPRAY NS DAILY, (Reported) Entered as Reported by: OLMAN PATTERSON on 10/21/202048 Ondansetron (Ondansetron Odt) 4 Mg Tab.rapdis, 4 MG PO Q6H PRN for NAUSEA/VOMITING, (Reported) Entered as Reported by: VONNIE LEON on 11/10/21 111 Ondansetron (Ondansetron Odt) 4 Mg Tab.rapdis, 4 MG SL Q8H PRN for NAUSEA/ VOMITING Prescribed by: MICHELLE VO on 05/12/23 014 Pantoprazole Sodium (Pantoprazole Sodium) 40 Mg Tablet.dr, 40 MG PO DAILY, (Reported) Entered as Reported by: MEGA SKINNER on 06/06/21 1438 Sucralfate (Sucralfate) 1 Gm Tablet, 1 GM PO ACHS, (Reported) Entered as Reported by: VONNIE LEON on 11/10/21 1119 Review of Systems Review of Systems Constitutional: see HPI, chills, fever EENTM: no symptoms reported Respiratory: no symptoms reported Cardiovascular: no symptoms reported Gastrointestinal: nausea Genitourinary: no symptoms reported Musculoskeletal: other (upper arm discomfort) Skin: pruritus, rash Psychiatric/Neurological: No Symptoms Reported All Other Systems Reviewed Negative Unless Noted: Yes Past Raxfzti-Mpehih-Wqqndz Hx Immunizations Up To Date First/Initial COVID19 Vaccinat: yes Second COVID19 Vaccination Job: yes Third COVID19 Vaccination Date: NO Seasonal Allergies Seasonal Allergies: Yes Past Medical History Surgeries: Yes (TAILBONE SURGERY A LONG TIME AGO/?PILONIDAL CYST: OVARIAN CYST REMOVAL) Gallbladder Respiratory: No Cardiac: No Neurological: No 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 Reproductive Disorders: Menstrual Problems, Ovarian Cyst Genitourinary: No Gastrointestinal: Yes (chronic gastritis) Gall Bladder Disease Musculoskeletal: No Endocrine: No HEENT: No Cancer: No Psychosocial: No Integumentary: No Blood Disorders: No Physical Exam Vital Signs Vital Signs - First Documented 05/12/23 00:28 Temp 38.0 Pulse 113 Resp 20 B/P (MAP) 171/103 (125) Pulse Ox 99 O2 Delivery Room Air Capillary Refill : General Appearance: WD/WN, no apparent distress, other (appears flushed) HEENT: PERRL/EOMI Neck: full range of motion, supple Cardiovascular: regular rate, rhythm (tachy) Respiratory: lungs clear, normal breath sounds, no respiratory distress, no accessory muscle use Extremities: normal range of motion, other (erythema about 5cm diameter to inner upper right arm with central ecchymotic lesion (tiny). no necrosis. mildly tender to palpation. no lymphangitic streaking noted) Neurologic/Psychiatric: alert, normal mood/affect, oriented x 3 Skin: normal color, warm/dry, other (see above extremity exam) Skin Problem Location: other (face is quite flushed) Progress/Results/Core Measures Results/Orders My Orders Orders - GILDA,MICHELLE M MD Ondansetron Oral Dissolve Tab (Ondanset (05/12/23 00:51) Ibuprofen Tablet (Ibuprofen Tablet) (05/12/23 01:30) Doxycycline Hyclate Tablet (Doxycycline (05/12/23 01:20) Medications Given in ED Current Medications Medications Dose Ordered Sig/Sarah Route Start Time Stop Time Status Last Admin Dose Admin Ibuprofen 600 mg ONCE ONCE PO 05/12/23 01:30 05/12/23 01:31 DC 05/12/23 01:28 600 MG Vital Signs/I&O 05/12/23 05/12/23 00:28 01:01 Temp 38.0 38.0 Pulse 113 Resp 20 B/P (MAP) 171/103 (125) Pulse Ox 99 O2 Delivery Room Air Progress Progress Note : Time: 01:37 Progress Note Patient seen and evaluated by me. Eval today includes physical exam. Patient is febrile and tachy at 113HR. BP is up as well. HEENT is unremarkable - HR is regular. Lugs clear/ RUE with apparent insect "bite" to medial upper arm. surrounding erythema. tender to palpation. distal NVI. no lymphangitic streaking noted. Rest of her exam is unremarkable. DDx based on H&P - brown recluse bite, insect bite, cellulitis Based on the location of the bite and the characteristics, I suspect possibly brown recluse bite. I will go ahead and cover for simple cellulitis with doxycycline (good staph coverage). I have advised her to monitor the area closely as it is in the fleshy area of her arm and may necrose - if a wound forms, advised her to follow up with a PCP, she may need a wound care clinic. Tylenol and Ibuprofen for fever. Doxy for 10 days. Return precautions provided in both verbal and written format - all questions are sought and answered. She has had no vomiting, diarrhea - labs considered but H&P do not support the need at this time. Departure Impression Primary Impression: Cellulitis Qualified Codes: L03.113 - Cellulitis of right upper limb Additional Impression: Insect bite Qualified Codes: S40.861A - Insect bite (nonvenomous) of right upper arm, initial encounter; W57.XXXA - Bitten or stung by nonvenomous insect and other nonvenomous arthropods, initial encounter Disposition: HOME, SELF-CARE Condition: Stable Departure-Patient Inst. Decision time for Depature: 01:41 Referrals: [facility] (PCP/Family) Primary Care Physician Patient Instructions: Cellulitis (Skin Infection), Adult ED Add. Discharge Instructions: Monitor the area closely - it may "open up" and spread. If this starts to occur, please follow up with [facility] - they may want to refer you in to a wound care clinic for aggressive management. Keep it clean and dry. Take the antibiotics as prescribed - finish the entire course. Zofran 4mg orally disintegrating tablets - every 6-8 hours as needed for nausea. If you have any new, concerning or emergent complaints, please return to the Emergency Department for re-evaluation. Scripts Doxycycline Hyclate (Doxycycline Hyclate) 100 Mg Tablet 100 MG PO BID, #19 TAB 0 Refills Prov: MICHELLE VO MD 05/12/23 Ondansetron (Ondansetron Odt) 4 Mg Tab.rapdis 4 MG SL Q8H PRN for NAUSEA/VOMITING, #12 TAB Prov: MICHELLE VO MD 05/12/23 Work/School Note: Work Release Form Date Seen in the Emergency Department: May 12, 2023 Return to Work: May 13, 2023 Copy Copies To 1: TEVIN SERNA KATHRYN M MD May 12, 2023 00:50
[2023-05-12] MEDS ORDERED: ONDANSETRON 4 MG ORAL DISSOLVE TABLET PO STA (00:51)
[2023-05-12] MEDS ORDERED: IBUPROFEN 600 MG TABLET PO ONE (01:30)
[2023-05-12] MEDS ORDERED: ONDA4TAB11 SL (01:44)
[2023-05-12] MEDS ORDERED: DOXY100T2 PO (01:44)
== END 2023-05-12 01:49 | disposition home or self-care (01) ==
LOC: EDUNIT# 00:20 → ER 00:24
DX: S40.861A Insect bite (nonvenomous) of right upper arm, initial encounter (principal); L03.113 Cellulitis of right upper limb; R00.0 Tachycardia, unspecified; R11.0 Nausea; Z79.899 Other long term (current) drug therapy; W57.XXXA Bitten or stung by nonvenomous insect and other nonvenomous arthropods, initial encounter; Y92.59 Other trade areas as the place of occurrence of the external cause; Y99.0 Civilian activity done for income or pay

== ENCOUNTER 2023-05-14 16:45 | Emergency (ER) | payer SELFPAY ==
[~2023-05-14] VITALS: Ht 167 cm; Wt 104.0 kg
[~2023-05-14 16:45] MED LIST changes: +DOXY100T2 PO; +ONDA4TAB11 SL
--- NOTE | 2023-05-14 17:11 | ED Integumentary General ---
General Chief Complaint: Bite-Animal/Human/Insect Stated Complaint: SPIDER BITE RIGHT UPPER ARM Nursing Triage Note: WAS SEEN IN THE ER SUNDAY NIGHT FOR QA SPIDER BITE TO THE RIGHT ARM. PT COMES HERE TODAY BECAUSE SHE FEELS IT IS WORSE DESPITE BEING ON DOXY. PT STATES SHE HAS BEEN FEBRILE. Source: patient Exam Limitations: no limitations History of Present Illness Date Seen by Provider: May 14, 2023 Time Seen by Provider: 16:49 Initial Comments 32-year-old female presents to the ER with reports of worsening of her spider bite. She states that she was seen here on 05/12/2023, and diagnosed with a brown recluse spider bite. She was started on doxycycline at that time. She followed up with [facility] the next day and was given a shot of Rocephin. She returns today because the area of redness has increased, the center has turned dark color, she also has fevers which only occur at night. States that her fever has ranged from 100.6-102.4. Last night her fever was 100.6. She also reports that her whole body is red, she complains of itching in her abdomen, bilateral hands, bilateral feet. The symptoms started after starting the doxycycline. Allergies and Home Medications Allergies Coded Allergies: doxycycline (Verified Allergy, Unknown, rash, 05/14/23) Patient Home Medication List Home Medication List Reviewed: Yes Cephalexin (Cephalexin) 500 Mg Tablet, 500 MG PO QID Prescribed by: Elle Gutierrez on 05/14/231909 Cetirizine HCl (Zyrtec) 10 Mg Capsule, 10 MG PO DAILY, (Reported) Entered as Reported by: MEGA SKINNER on 06/06/21 1438 Doxycycline Hyclate (Doxycycline Hyclate) 100 Mg Tablet, 100 MG PO BID Prescribed by: MICHELLE VO on 05/12/23 0144 Fluticasone Propionate (Flonase Allergy Relief) 9.9 Ml [place].susp, 1 SPRAY NS DAILY, (Reported) Entered as Reported by: OLMAN PATTERSON on 10/21/202048 Ondansetron (Ondansetron Odt) 4 Mg Tab.rapdis, 4 MG PO Q6H PRN for NAUSEA/VOMITING, (Reported) Entered as Reported by: VONNIE LEON on 11/10/21 1119 Ondansetron (Ondansetron Odt) 4 Mg Tab.rapdis, 4 MG SL Q8H PRN for NAUSEA/VOMITING Prescribed by: MICHELLE VO on 05/12/23 0144 Pantoprazole Sodium (Pantoprazole Sodium) 40 Mg Tablet.dr, 40 MG PO DAILY, (Reported) Entered as Reported by: MEGA SKINNER on 06/06/21 1438 Sucralfate (Sucralfate) 1 Gm Tablet, 1 GM PO ACHS, (Reported) Entered as Reported by: VONNIE LEON on 11/10/21 1119 Review of Systems Review of Systems Constitutional: see HPI Past Tjullfq-Iaodot-Haosnc Hx Patient Social History Tobacco Use?: No Substance use?: No Alcohol Use?: Yes Alcohol Frequency: Once in a while Immunizations Up To Date First/Initial COVID19 Vaccinat: yes Second COVID19 Vaccination Job: yes Third COVID19 Vaccination Date: NO Seasonal Allergies Seasonal Allergies: Yes Past Medical History Surgeries: Yes (TAILBONE SURGERY A LONG TIME AGO/?PILONIDAL CYST: OVARIAN CYST REMOVAL) Gallbladder Respiratory: No Cardiac: No Neurological: No Last Menstrual Period: Apr 20, 2023 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 Reproductive Disorders: Menstrual Problems, Ovarian Cyst Genitourinary: No Gastrointestinal: Yes (chronic gastritis) Gall Bladder Disease Musculoskeletal: No Endocrine: No HEENT: No Cancer: No Psychosocial: No Integumentary: No Blood Disorders: No Physical Exam Vital Signs Vital Signs - First Documented 05/14/23 16:45 Temp 36.9 Pulse 122 Resp 16 B/P (MAP) 122/80 (94) Pulse Ox 97 O2 Delivery Room Air Capillary Refill : Less Than 3 Seconds General Appearance: WD/WN, no apparent distress Neck: supple, normal inspection Cardiovascular: tachycardia Respiratory: lungs clear, normal breath sounds, no respiratory distress, no accessory muscle use Extremities: normal range of motion Neurologic/Psychiatric: alert, normal mood/affect Skin: normal color, warm/dry Skin Problem Location: upper extremities (Right upper medial arm) Skin Problem Character: erythema (Classic brown recluse spider bite presentation, blue center, surrounded by small amount of white, and erythema surrounding entire area.) Progress/Results/Core Measures Results/Orders Lab Results Laboratory Tests Test 05/14/23 17:15 05/14/23 18:00 Range/Units White Blood Count 10.2 4.3-11.0 10^3/uL Red Blood Count 4.44 3.80-5.11 10^6/uL Hemoglobin 13.1 11.5-16.0 g/dL Hematocrit 40 35-52 % Mean Corpuscular Volume 90 80-99 fL Mean Corpuscular Hemoglobin 30 25-34 pg Mean Corpuscular Hemoglobin Concent 33 32-36 g/dL Red Cell Distribution Width 12.9 10.0-14.5 % Platelet Count 179 130-400 10^3/uL Mean Platelet Volume 11.2 9.0-12.2 fL Immature Granulocyte % (Auto) 0 % Neutrophils (%) (Auto) 83 H 42-75 % Lymphocytes (%) (Auto) 10 L 12-44 % Monocytes (%) (Auto) 6 0-12 % Eosinophils (%) (Auto) 0 0-10 % Basophils (%) (Auto) 0 0-10 % Neutrophils # (Auto) 8.5 H 1.8-7.8 10^3/uL Lymphocytes # (Auto) 1.0 1.0-4.0 10^3/uL Monocytes # (Auto) 0.6 0.0-1.0 10^3/uL Eosinophils # (Auto) 0.0 0.0-0.3 10^3/uL Basophils # (Auto) 0.0 0.0-0.1 10^3/uL Immature Granulocyte # (Auto) 0.0 0.0-0.1 10^3/uL Prothrombin Time 12.7 12.2-14.7 SEC INR Comment 0.9 0.8-1.4 Activated Partial Thromboplast Time 29 24-35 SEC Fibrinogen 554 H 221-496 MG/DL D-Dimer 0.99 H 0.00-0.49 UG/ML Sodium Level 140 135-145 MMOL/L Potassium Level 4.1 3.6-5.0 MMOL/L Chloride Level 110 H 98-107 MMOL/L Carbon Dioxide Level 22 21-32 MMOL/L Anion Gap 8 5-14 MMOL/L Blood Urea Nitrogen 7 7-18 MG/DL Creatinine 0.74 0.60-1.30 MG/DL Estimat Glomerular Filtration Rate 109 BUN/Creatinine Ratio 9 Glucose Level 120 H 70-105 MG/DL Lactic Acid Level 1.48 0.50-2.00 MMOL/L Calcium Level 8.9 8.5-10.1 MG/DL Corrected Calcium 9.1 8.5-10.1 MG/DL Total Bilirubin 0.3 0.1-1.0 MG/DL Aspartate Amino Transf (AST/SGOT) 45 H 5-34 U/L Alanine Aminotransferase (ALT/SGPT) 68 H 0-55 U/L Alkaline Phosphatase 104 40-136 U/L Lactate Dehydrogenase 267 H 125-220 U/L Total Creatine Kinase 27 L 29-168 U/L Total Protein 6.5 6.4-8.2 GM/DL Albumin 3.8 3.2-4.5 GM/DL Urine Color YELLOW Urine Clarity SLIGHTLY CLOUDY Urine pH 7.0 5-9 Urine Specific [place] 1.010 L 1.016-1.022 Urine Protein NEGATIVE NEGATIVE Urine Glucose (UA) NEGATIVE NEGATIVE Urine Ketones NEGATIVE NEGATIVE Urine Nitrite NEGATIVE NEGATIVE Urine Bilirubin NEGATIVE NEGATIVE Urine Urobilinogen 1.0 < = 1.0 MG/DL Urine Leukocyte Esterase NEGATIVE NEGATIVE Urine RBC (Auto) NEGATIVE NEGATIVE Urine RBC NONE /HPF Urine WBC 2-5 /HPF Urine Squamous Epithelial Cells 10-25 H /HPF Urine Crystals NONE /LPF Urine Bacteria LARGE H /HPF Urine Casts NONE /LPF Urine Mucus SMALL H /LPF Urine Culture Indicated YES My Orders Orders - ELLE KEY APRN Ua Culture If Indicated (05/14/23 17:03) Cbc With Automated Diff (05/14/23 17:03) Comprehensive Metabolic Panel (05/14/23 17:03) Blood Culture (05/14/23 17:03) Protime With Inr (05/14/23 17:03) Partial Thromboplastin Time (05/14/23 17:03) Ed Iv/Invasive Line Start (05/14/23 17:03) Lactic Acid Analyzer (05/14/23 17:03) Creatine Kinase (05/14/23 17:03) Fibrin Degradation Products (05/14/23 17:03) Fibrinogen (05/14/23 17:03) LDH (05/14/23 17:03) Ns Iv 1000 Ml (Ns Iv 1000 Ml) (05/14/23 17:15) Urine Culture (05/14/23 18:00) Fentanyl Injection (Fentanyl Injection (05/14/23 18:45) Cephalexin Capsule (Cephalexin Capsule) (05/14/23 19:15) Medications Given in ED Current Medications Medications Dose Ordered Sig/Sarah Route Start Time Stop Time Status Last Admin Dose Admin Cephalexin HCl 500 mg ONCE ONCE PO 05/14/23 19:15 05/14/23 19:16 DC 05/14/23 19:16 500 MG Fentanyl Citrate 50 mcg ONCE ONCE IVP 05/14/23 18:45 05/14/23 18:46 DC 05/14/23 18:51 50 MCG Vital Signs/I&O 05/14/23 05/14/23 16:45 19:15 Temp 36.9 36.5 Pulse 122 97 Resp 16 16 B/P (MAP) 122/80 (94) 115/66 Pulse Ox 97 97 O2 Delivery Room Air Room Air Blood Pressure Mean: 94 Progress Progress Note : Progress Note Patient seen and evaluated, resting comfortably in bed, no acute distress. Due to classic brown recluse spider bite presentation and systemic symptoms of a fever, I am concerned for systemic loxoscelism. Work-up initiated including CBC, CMP, coags, lactic acid, blood cultures x2, urinalysis, D-dimer, fibrinogen, LDH. IV fluids ordered. 1906 Labs reviewed. CBC shows normal hemoglobin, slightly elevated neutrophil percentage 83. CMP shows slightly elevated chloride 110. AST and ALT slightly elevated. Lactate dehydrogenase is slightly elevated to 67. Total creatinine kinase is negative. Coags normal. Fibrinogen elevated 554. D-dimer slightly elevated 0.99. Urinalysis negative for RBCs. Based on labs and urinalysis, I do not think patient has systemic loxoscelism. Results discussed with patient. Patient states pain has improved after fentanyl. Will switch patient from doxycycline to Keflex due to likely allergy to doxycycline. Will provide patient with phone numbers to surgeons for follow-up. Instructed to return if symptoms continue to get worse. Discharge instructions and return precautions provided. Departure Impression Primary Impression: Brown recluse spider bite Disposition: 01 HOME, SELF-CARE Condition: Stable Departure-Patient Inst. Decision time for Depature: 19:08 Referrals: LUCRETIA SINGH BRITTANY B MD (PCP/Family) Primary Care Physician Patient Instructions: Wound Care (DC) Add. Discharge Instructions: Stop taking the doxycycline. Start taking Keflex. Complete full course of Keflex as prescribed. Follow-up with Dr. Singh, surgery, or evaluation of the wound. Return if you are getting worse not better, or any other new, concerning, or worsening symptoms. All discharge instructions reviewed with patient and/or family. Voiced understanding. Scripts Cephalexin (Cephalexin) 500 Mg Tablet 500 MG PO QID for 10 Days, #40 TAB 0 Refills Prov: ELLE KEY APRN 05/14/23 ELLE KEY APRN May 14, 2023 17:11
[2023-05-14] MEDS ORDERED: NS IV 1000 ML 1,000 ML IV SCH (17:15)
[2023-05-14 17:26] LABS: BASOPHILS % (AUTO) 0 % (0-10); EOSINOPHILS % (AUTO) 0 % (0-10); HEMATOCRIT 40 % (35-52); HEMOGLOBIN 13.1 g/dL (11.5-16.0); LYMPHOCYTES % (AUTO) 10 % (12-44); MEAN CORPUSCULAR HEMOGLOBIN 30 pg (25-34); MEAN CORPUSCULAR HGB CONC 33 g/dL (32-36); MEAN CORPUSCULAR VOLUME 90 fL (80-99); MEAN PLATELET VOLUME 11.2 fL (9.0-12.2); MONOCYTES # (AUTO) 0.6 10^3/uL (0.0-1.0); MONOCYTES % (AUTO) 6 % (0-12); NEUTROPHILS # (AUTO) 8.5 10^3/uL (1.8-7.8); NEUTROPHILS % (AUTO) 83 % (42-75); PLATELET COUNT 179 10^3/uL (130-400); WHITE BLOOD COUNT 10.2 10^3/uL (4.3-11.0)
[2023-05-14 17:43] LABS: INR 0.9 (0.8-1.4); PROTHROMBIN TIME PATIENT 12.7 SEC (12.2-14.7)
[2023-05-14 17:46] LABS: FIBRIN DEGRADATION PRODUCTS 0.99 UG/ML (0.00-0.49)
[2023-05-14 17:47] LABS: ALBUMIN 3.8 GM/DL (3.2-4.5); BILIRUBIN,TOTAL 0.3 MG/DL (0.1-1.0); CALCIUM 8.9 MG/DL (8.5-10.1); CREATININE SERUM 0.74 MG/DL (0.60-1.30); POTASSIUM 4.1 MMOL/L (3.6-5.0); TOTAL PROTEIN 6.5 GM/DL (6.4-8.2)
[2023-05-14 18:38] LABS: BACTERIA,URINE LARGE /HPF; BILIRUBIN,URINE NEGATIVE (NEGATIVE); CLARITY,URINE SLIGHTLY CLOUDY; COLOR,URINE YELLOW; GLUCOSE, URINE (UA) NEGATIVE (NEGATIVE); KETONES,URINE NEGATIVE (NEGATIVE); LEUKOCYTE ESTERASE ,URINE NEGATIVE (NEGATIVE); NITRITE,URINE NEGATIVE (NEGATIVE); PROTEIN,URINE NEGATIVE (NEGATIVE)
[2023-05-14] MEDS ORDERED: fentaNYL INJECTION 100 MCG/2 ML VIAL IVP ONE (18:45)
[2023-05-14] MEDS ORDERED: CEPH500T PO (19:10)
[2023-05-14 19:15] VITALS: BP 115/66
[2023-05-14] MEDS ORDERED: CEPHALEXIN 250 MG CAPSULE PO ONE (19:15)
== END 2023-05-14 19:19 | disposition home or self-care (01) ==
LOC: EDUNIT# 16:45 → ER 16:47
DX: T63.301A Toxic effect of unspecified spider venom, accidental (unintentional), initial encounter (principal)
CPT/HCPCS: 36415; 80053; 81000; 82550; 83605; 83615; 84703; 85025; 85379; 85384; 85610; 85730; 87040; 87088